=== PATIENT | male | born 1955 | race Hispanic/Latino ===

== ENCOUNTER 2016-10-28 20:53 | Emergency (ER) | payer SELFPAY ==
[2016-10-28] MEDS ORDERED: TYLENOL ONE (21:53)
[2016-10-28] MEDS ORDERED: TYLENOL PO ONE (21:59)
--- NOTE | 2016-10-29 03:29 | Emergency Department Report ---
ED Recheck HPI - General Chief Complaint: Recheck/Abnormal Lab/Rx Stated Complaint: HIP INJURY/NECK PAIN/FALL Time Seen by Provider: 10/29/16 02:49 Source: patient, family Mode of arrival: Ambulatory Limitations: No Limitations - History of Present Illness Initial Comments: Patient here requesting a refill on medication he said he ran out of his medication and he used to go to [place] and [place] to refill it but he didn't have any transportation to get there. The resident's discharge and he sustained in a care home for now. He is waiting for his disability. Patient said he has [place] Medicaid card and he can come to the ER and get his prescription was not having any cold Plake. Patient requesting refill on tramadol, ibuprofen, Flonase cromolyn sodium, Zyrtec, Lexapro, Flexeril, gabapentin and albuterol. He said several other medication but he said he does not need anything right now. Patient has said he has chronic hip pain and he is having pain to his hip and 9 out of 10. And requested some pain medication. Patient has multiple medical problems include HIV and he said the last time he saw his HIV doctor in [place] was a year ago. He said he went to [place] and had lab work drawn his viral load was undetectable and his T-cell was at 249. He is on HIV medication and he is asymptomatic for any respiratory problems or signs of infection. Patient has proof of all his medication and antibiotics. He said he is supposed to be set up with a clinic who will have social service and help him to infectious disease clinic. Patient said he's been treating for latent TB any gross to [facility] to get treated. Complaint: medication refill request Returns Today for: request for prescription Context: ran out of medication Associated Symptoms: none Treatments Prior to Arrival: Given Pain Meds on - Related Data Home Medications Medication Instructions Recorded Confirmed Last Taken Atorvastatin [Lipitor] 40 mg PO QHS 10/09/14 07/04/16 01/26/16 Lindane 1% [Kwell 1%] 60 ml TP TID 07/04/16 07/04/16 Unknown Previous Rx's Medication Instructions Recorded Last Taken Type Cetirizine HCl [All Day Allergy] 10 mg PO Q4H PRN #60 capsule 02/18/16 Unknown Rx Darunavir [Prezista] 400 mg PO QDAY #30 tablet 02/18/16 Unknown Rx Emtricitabin/Tenofovir [TRUVADA 1 tab PO DAILY #30 tablet 02/18/16 Unknown Rx 200-300 mg] Ritonavir [Norvir] 100 mg PO QDAY #30 tab 02/18/16 Unknown Rx lamoTRIgine [LaMICtal] 150 mg PO BID #60 tablet 07/04/16 Unknown Rx levETIRAcetam [Keppra TAB] 1,000 mg PO BID #60 tab 07/04/16 Unknown Rx Gabapentin [Neurontin] 100 mg PO Q8HR #30 capsule 10/13/16 Unknown Rx Levofloxacin [Levaquin TAB] 500 mg PO QDAY #7 tablet 10/13/16 Unknown Rx Prednisone [predniSONE 5 mg (6-Day 5 mg PO .TAPER #1 tab.ds.pk 10/13/16 Unknown Rx Pack, 21 Tabs)] Ritonavir [Norvir] 100 mg PO QDAY #30 cap 10/13/16 Unknown Rx traMADol [Ultram] 50 mg PO Q6HR PRN #14 tablet 10/13/16 Unknown Rx ALBUTEROL Inhaler [ProAir HFA 2 puff IH QID PRN #1 inhalation 10/29/16 Unknown Rx Inhaler] Cetirizine HCl 10 mg PO DAILY #30 tab.chew 10/29/16 Unknown Rx Cromolyn Sodium [Cromolyn Sodium 1 - 2 drop OU Q6HR #10 ml 10/29/16 Unknown Rx 4%] Cyclobenzaprine [Flexeril 10 MG 10 mg PO TID PRN #30 tablet 10/29/16 Unknown Rx TAB] Fluticasone [Flonase] 1 spray NS QDAY #1 bottle 10/29/16 Unknown Rx Gabapentin [Neurontin] 100 mg PO Q8HR #30 capsule 10/29/16 Unknown Rx traMADol [Ultram 50 MG tab] 50 mg PO TID PRN #30 tablet 10/29/16 Unknown Rx Allergies Allergy/AdvReac Type Severity Reaction Status Date / Time No Known Allergies Allergy Verified 10/28/16 21:51 ED Review of Systems ROS: Stated complaint: HIP INJURY/NECK PAIN/FALL Other details as noted in HPI Comment: All other systems reviewed and negative Constitutional: denies: chills, fever ENT: denies: throat pain, dental pain, congestion Respiratory: no symptoms reported Cardiovascular: denies: chest pain, palpitations, edema, syncope Gastrointestinal: denies: abdominal pain, nausea, vomiting, diarrhea Musculoskeletal: arthralgia (BOTH hips). denies: back pain, joint swelling Skin: denies: rash Neurological: denies: headache, weakness, numbness, paresthesias, confusion, abnormal gait, vertigo ED Past Medical Hx - Past Medical History Previous Medical History?: Yes Hx CVA: Yes (TIA 2003) Hx GERD: Yes Hx Seizures: Yes Hx Psychiatric Treatment: Yes (bipolar) Hx Asthma: Yes Hx HIV: Yes Additional medical history: right hip fx, left hip fx. herniated and ruptured discs - Surgical History Past Surgical History?: Yes Additional Surgical History: Left hip surgery - Family History Family history: hypertension - Social History Smoking Status: Current Every Day Smoker Substance Use Type: Alcohol, Marijuana - Medications Home Medications: Home Medications Medication Instructions Recorded Confirmed Last Taken Type Atorvastatin [Lipitor] 40 mg PO QHS 10/09/14 07/04/16 01/26/16 History Cetirizine HCl [All Day Allergy] 10 mg PO Q4H PRN #60 capsule 02/18/16 07/04/16 Unknown Rx Darunavir [Prezista] 400 mg PO QDAY #30 tablet 02/18/16 07/04/16 Unknown Rx Emtricitabin/Tenofovir [TRUVADA 1 tab PO DAILY #30 tablet 02/18/16 07/04/16 Unknown Rx 200-300 mg] Ritonavir [Norvir] 100 mg PO QDAY #30 tab 02/18/16 07/04/16 Unknown Rx Lindane 1% [Kwell 1%] 60 ml TP TID 07/04/16 07/04/16 Unknown History lamoTRIgine [LaMICtal] 150 mg PO BID #60 tablet 07/04/16 Unknown Rx levETIRAcetam [Keppra TAB] 1,000 mg PO BID #60 tab 07/04/16 Unknown Rx Gabapentin [Neurontin] 100 mg PO Q8HR #30 capsule 10/13/16 Unknown Rx Levofloxacin [Levaquin TAB] 500 mg PO QDAY #7 tablet 10/13/16 Unknown Rx Prednisone [predniSONE 5 mg (6-Day 5 mg PO .TAPER #1 tab.ds.pk 10/13/16 Unknown Rx Pack, 21 Tabs)] Ritonavir [Norvir] 100 mg PO QDAY #30 cap 10/13/16 Unknown Rx traMADol [Ultram] 50 mg PO Q6HR PRN #14 tablet 10/13/16 Unknown Rx ALBUTEROL Inhaler [ProAir HFA 2 puff IH QID PRN #1 inhalation 10/29/16 Unknown Rx Inhaler] Cetirizine HCl 10 mg PO DAILY #30 tab.chew 10/29/16 Unknown Rx Cromolyn Sodium [Cromolyn Sodium 1 - 2 drop OU Q6HR #10 ml 10/29/16 Unknown Rx 4%] Cyclobenzaprine [Flexeril 10 MG 10 mg PO TID PRN #30 tablet 10/29/16 Unknown Rx TAB] Fluticasone [Flonase] 1 spray NS QDAY #1 bottle 10/29/16 Unknown Rx Gabapentin [Neurontin] 100 mg PO Q8HR #30 capsule 10/29/16 Unknown Rx traMADol [Ultram 50 MG tab] 50 mg PO TID PRN #30 tablet 10/29/16 Unknown Rx ED Physical Exam - General Limitations: No Limitations General appearance: alert, in no apparent distress - Head Head exam: Present: atraumatic, normocephalic, normal inspection - ENT ENT exam: Present: normal exam, normal orophraynx, mucous membranes moist, TM's normal bilaterally, normal external ear exam - Neck Neck exam: Present: normal inspection, full ROM. Absent: tenderness, meningismus, lymphadenopathy - Respiratory Respiratory exam: Present: normal lung sounds bilaterally. Absent: respiratory distress - Cardiovascular Cardiovascular Exam: Present: regular rate, normal rhythm, normal heart sounds - GI/Abdominal GI/Abdominal exam: Present: soft, normal bowel sounds. Absent: distended, tenderness, guarding, rebound, rigid - Extremities Exam Extremities exam: Present: normal capillary refill. Absent: full ROM ( decreased range of motion to the bilateral lower extremity at hips and patient uses a walker due to chronic pain.), tenderness, pedal edema, joint swelling - Neurological Exam Neurological exam: Present: alert, oriented X3, abnormal gait (chronic hip pain and uses a walker) - Psychiatric Psychiatric exam: Present: normal affect, normal mood - Skin Skin exam: Present: warm, dry, intact, normal color. Absent: rash ED Course Vital Signs 10/28/16 10/29/16 21:51 04:10 Temperature 99 F Pulse Rate 88 Respiratory 18 20 Rate Blood Pressure 154/99 O2 Sat by Pulse 99 Oximetry - Reevaluation(s) Reevaluation #1: 10/29/16 06:25 Patient given Tylenol 975 mg in triage area for pain. He further requested Motrin and was given Motrin 800 mg by mouth in ED room. She is resting quietly at present. ED Recheck MDM - Differential Diagnosis Prescription Refill(s) - Medical Decision Making ED course: Discussed the patient that I will refill his medication but he will need to establish himself with a clinic to manage his chronic medical problem. Patient is already going to [facility] for latent TB treatment and I told them that they manage HIV at that site also. Patient is also establish to [place] clinic site explained to him that he needs to have them refer him to [place] [facility]. He said that geriatric social worker is helping him to get help through [facility] for [place]. He is currently taking HIV medication and has sufficient amount and I told him that he needs to be careful that he doesn't run out because he runs out and Misses 3 days then that can cause with assistance. Patient voiced understanding of discharge instruction and discharged home with prescription for Flonase, cromolyn 4%, ibuprofen, tramadol , gabapentin, Flexeril and Zyrtec. Critical care attestation.: If time is entered above; I have spent that time in minutes in the direct care of this critically ill patient, excluding procedure time. ED Disposition Clinical Impression: Medication refill Arthralgia of hip Qualifiers: Laterality: bilateral Qualified Code(s): M25.551 - Pain in right hip; M25.552 - Pain in left hip Disposition: DISCHARGED TO HOME OR SELFCARE Is pt being admited?: No Does the pt Need Aspirin: No Condition: Stable Instructions: Arthralgia (ED), Chronic Pain (ED) Additional Instructions: Please follow up at [place] clinic for referral to [place] [facility]. Please follow up at medical clinic for management of chronic diseases. Take medication as prescribed [facility] manage his HIV status mucosa ETB treatment you can inquire with them regarding management. Prescriptions: ALBUTEROL Inhaler [ProAir HFA Inhaler] 2 puff IH QID PRN #1 inhalation PRN Reason: Cough Cetirizine HCl 10 mg PO DAILY #30 tab.chew Cromolyn Sodium [Cromolyn Sodium 4%] 1 - 2 drop OU Q6HR #10 ml Cyclobenzaprine [Flexeril 10 MG TAB] 10 mg PO TID PRN #30 tablet PRN Reason: Muscle Spasm Fluticasone [Flonase] 1 spray NS QDAY #1 bottle Gabapentin [Neurontin] 100 mg PO Q8HR #30 capsule traMADol [Ultram 50 MG tab] 50 mg PO TID PRN #30 tablet PRN Reason: Pain Referrals: [facility] [Outside] - 2-3 Days [facility] [Outside] - 2-3 Days
[2016-10-29] MEDS ORDERED: MOTRIN PO ONE (03:50)
[2016-10-29 06:42] VITALS: BP 145/92
== END 2016-10-29 06:52 | disposition home or self-care (01) ==
LOC: ED 20:53
DX: Z76.0 Encounter for issue of repeat prescription (principal); M25.551 Pain in right hip; M25.552 Pain in left hip; K21.9 Gastro-esophageal reflux disease without esophagitis; R56.9 Unspecified convulsions; F31.9 Bipolar disorder, unspecified; J45.909 Unspecified asthma, uncomplicated; F17.200 Nicotine dependence, unspecified, uncomplicated; F12.10 Cannabis abuse, uncomplicated; Z21 Asymptomatic human immunodeficiency virus [HIV] infection status; Z86.73 Personal history of transient ischemic attack (TIA), and cerebral infarction without residual deficits
CPT/HCPCS: 99282

== ENCOUNTER 2017-02-24 22:34 | Emergency (ER) | payer SELFPAY ==
[2017-02-25] MEDS ORDERED: MORPHINE IM ONE (01:05)
[2017-02-25] MEDS ORDERED: TORADOL IM ONE (01:05)
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
--- NOTE | 2017-02-25 03:03 | XRay Report ---
FINAL REPORT PROCEDURE: XR SPINE CERVICAL 2-3V TECHNIQUE: Cervical spine radiographs, AP, lateral, and open-mouth odontoid views. CPT 10613 HISTORY: neck Pain, fall COMPARISON: No prior studies are available for comparison. FINDINGS: Prevertebral soft tissues: Normal . Alignment: Normal . Vertebral body heights/Disk spaces: The heights of the vertebral bodies are maintained. The disc spaces are maintained. There is spur formation off the vertebral bodies from the C4 through the C7 vertebral levels. Anterior osseous bridging at the C5-6 level is identified.. Fracture(s): None . Facets: Normal . Bone mineralization: Normal . IMPRESSION: No evidence of an acute fracture dislocation. Moderate arthritis as described.
--- NOTE | 2017-02-25 03:05 | XRay Report ---
FINAL REPORT PROCEDURE: XR RIBS UNI W PA CHEST 3+V LT TECHNIQUE: LEFT rib radiographs, 3 views of the ribs, including PA chest. HISTORY: left rib pain, injury COMPARISON: No prior studies are available for comparison. FINDINGS: Heart: Normal. Mediastinum/Vessels: Normal. Lungs: Normal. Pleural space: Normal. Pneumothorax: None. Bony thorax/ribs: Slightly displaced fractures of the distal left 9th 10th and 11th ribs. IMPRESSION: There are slightly displaced fractures of the distal left 9th 10th and 11th ribs. No pneumothorax.
--- NOTE | 2017-02-25 03:07 | XRay Report ---
FINAL REPORT PROCEDURE: XR SPINE LUMBOSACRAL 2-3V TECHNIQUE: Lumbar spine radiographs, including AP, lateral, and lumbosacral spot views. CPT 94437 HISTORY: back pain, fall COMPARISON: No prior studies are available for comparison. FINDINGS: Alignment: Normal. Vertebral body heights/Disk spaces: There has been old compression deformities at the L1 and L2 vertebral levels. Vertebroplasty at the L1 vertebral level is noted. No acute fracture or dislocation.. Fracture(s): No acute fracture or dislocation.. Facets: Mild facet hypertrophy at all levels.. Bone mineralization: Osteoporosis. IMPRESSION: No acute fracture or dislocation. Old compression fractures of the L1 and L2 vertebral levels. Vertebroplasty of the L1 vertebral level is noted. Moderate arthritis.
--- NOTE | 2017-02-25 03:10 | XRay Report ---
FINAL REPORT PROCEDURE: XR HIP 2-3V LT TECHNIQUE: LEFT hip radiographs, 2 views each, including AP view of the pelvis. HISTORY: hip pain, fall COMPARISON: No prior studies are available for comparison. FINDINGS: Fracture (s) and/or Dislocation(s): There is significant osseous remodeling of proximal right femur, this is consistent with old fracture involving the subcapital region of the right femoral neck. There is a left hip prosthesis, this is well positioned within the acetabulum and proximal femur. No acute fracture or dislocation is seen. Joint space(s): Advanced narrowing of the right hip joint space Soft tissues: Normal. Bone mineralization: Normal. Foreign bodies: Left hip prosthesis. IMPRESSION: No acute fracture or dislocation. There is osseous remodeling of the right proximal femur consistent with old fracture of the subcapital region of the right femoral neck. Left hip prosthesis is well positioned.
[2017-02-25 04:32] VITALS: BP 153/95
== END 2017-02-25 04:32 | disposition home or self-care (01) ==
LOC: ED 22:34
DX: S22.32XA Fracture of one rib, left side, initial encounter for closed fracture (principal); M16.12 Unilateral primary osteoarthritis, left hip; S00.83XA Contusion of other part of head, initial encounter; M54.5 Low back pain; K21.9 Gastro-esophageal reflux disease without esophagitis; J45.909 Unspecified asthma, uncomplicated; Z86.73 Personal history of transient ischemic attack (TIA), and cerebral infarction without residual deficits; W18.2XXA Fall in (into) shower or empty bathtub, initial encounter; Y93.89 Activity, other specified; Y92.89 Other specified places as the place of occurrence of the external cause; Y99.8 Other external cause status
CPT/HCPCS: 71101; 72040; 72100; 73502; 96372; 99283; J1885; J2270

== ENCOUNTER 2017-03-07 01:14 | Emergency (ER) | payer SELFPAY ==
[2017-03-07 06:25] LABS: Hematocrit 32.4 % (35.5-45.6); Hemoglobin 10.8 gm/dl (11.8-15.2); Mean Corpuscular HGB Conc 33 % (32-34); Mean Corpuscular Hemoglobin 31 pg (28-32); Mean Corpuscular Volume 93 fl (84-94); Platelet Count 323 K/mm3 (140-440); Red Blood Count 3.47 M/mm3 (3.65-5.03); Red Cell Distribution Width 15.4 % (13.2-15.2); White Blood Count 8.7 K/mm3 (4.5-11.0)
[2017-03-07] MEDS ORDERED: PERCOCET 5/325 PO ONE (06:43)
[2017-03-07] MEDS ORDERED: TORADOL IM ONE (06:43)
[2017-03-07 06:52] LABS: Anion Gap 15 mmol/L; Blood Urea Nitrogen 26 mg/dL (9-20); Calcium 8.4 mg/dL (8.4-10.2); Carbon Dioxide 28 mmol/L (22-30); Chloride 104.2 mmol/L (98-107); Creatine Kinase 24 units/L (55-170); Glucose 110 mg/dL (75-100); Potassium 3.7 mmol/L (3.6-5.0); Sodium 143 mmol/L (137-145)
[2017-03-07 06:54] LABS: Creatine Kinase MB < 1.0 ng/mL (0.0-4.0)
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
--- NOTE | 2017-03-07 09:13 | Cat Scan Report ---
CT CHEST WITHOUT CONTRAST: HISTORY: Chest pain, left lower rib pain. TECHNIQUE: Helical CT with sagittal and coronal reformatted images. FINDINGS: Nondisplaced left lateral rib fractures are identified the eighth and ninth levels. A healing left lateral rib fracture at the fifth level is also identified which appears subacute. Moderate thoracic spondylosis. Kyphoplasty changes in the lower thoracic spine are noted. Heart and mediastinal structures are within normal limits. No mediastinal mass or adenopathy. The lungs are clear. No evidence for pneumonia, pleural effusion or pneumothorax. Limited images of the upper abdomen demonstrates nonobstructing renal stones in the superior kidneys. IMPRESSION: Left lateral eighth and ninth rib fractures, relatively acute. Healing left lateral fifth rib fracture, subacute. No acute cardiopulmonary process identified.
[2017-03-07 10:53] VITALS: BP 140/72
== END 2017-03-07 10:54 | disposition home or self-care (01) ==
LOC: ED 01:14
DX: S22.42XA Multiple fractures of ribs, left side, initial encounter for closed fracture (principal); K21.9 Gastro-esophageal reflux disease without esophagitis; J45.909 Unspecified asthma, uncomplicated; F12.10 Cannabis abuse, uncomplicated; Z86.73 Personal history of transient ischemic attack (TIA), and cerebral infarction without residual deficits; W19.XXXA Unspecified fall, initial encounter; Y93.89 Activity, other specified; Y92.89 Other specified places as the place of occurrence of the external cause; Y99.8 Other external cause status
CPT/HCPCS: 36415; 71250; 80048; 82550; 82553; 84484; 85025; 93005; 93010; 96372; 99284; J1885

== ENCOUNTER 2017-03-13 23:57 | Emergency (ER) | payer SELFPAY ==
--- NOTE | 2017-03-14 02:33 | XRay Report ---
FINAL REPORT EXAM: XR RIBS UNILAT 2V LT HISTORY: LEFT RIB PAIN. TECHNIQUE: A single frontal radiograph of the chest and 3 additional views of the left-sided ribs were obtained. Comparison is made with prior study 02/24/2017. FINDINGS: The heart is normal in size. The thoracic aorta tortuous and mildly calcified. There are low lung volumes. There is mild linear scarring at the left lateral lung base, also seen on prior study. The right lung is clear. There is no pleural effusion or pneumothorax. There is a subacute fracture of the left posterolateral 5th rib, with associated callus formation, though this was not seen on prior study. There is a mildly displaced fracture of the posterior left 6th rib, also seen on prior study. There are also fractures of the anterior left 8th, 9th, 10th, and 11th ribs, also seen on prior study. There are multiple compression deformities in the lower thoracic/upper lumbar spine, status post cement vertebroplasties. There are moderate spondylotic changes in the spine. IMPRESSION: 1. Low lung volumes with stable mild linear scarring at the left lateral lung base. 2. Multiple left-sided rib fractures, as described. This includes subacute fracture of the left posterolateral 5th rib, which was not seen on prior study 02/24/2017, with associated callus formation. No pleural effusion or pneumothorax.
[2017-03-14] MEDS ORDERED: TORADOL IM ONE (08:25)
[2017-03-14] MEDS ORDERED: FLEXERIL PO ONE (08:25)
[2017-03-14] MEDS ORDERED: NORCO 7.5/325 PO ONE (08:25)
[2017-03-14 09:37] VITALS: BP 147/75
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
== END 2017-03-14 10:20 | disposition home or self-care (01) ==
LOC: ED 23:57
DX: S22.42XD Multiple fractures of ribs, left side, subsequent encounter for fracture with routine healing (principal); K21.9 Gastro-esophageal reflux disease without esophagitis; J45.909 Unspecified asthma, uncomplicated; F12.10 Cannabis abuse, uncomplicated; Y08.89XA Assault by other specified means, initial encounter; Y93.9 Activity, unspecified; Y92.9 Unspecified place or not applicable; Y99.9 Unspecified external cause status
CPT/HCPCS: 71100; 96372; 99283; J1885

== ENCOUNTER 2017-03-24 03:33 | Emergency (ER) | payer MEDICAID, OTHER ==
--- NOTE | 2017-03-24 06:48 | XRay Report ---
FINAL REPORT PROCEDURE: XR HIPS BILAT 2V W/PELVIS TECHNIQUE: RIGHT and LEFT hip radiographs, AP and lateral views of each hip. HISTORY: fall COMPARISON: No prior studies are available for comparison. FINDINGS: Fracture (s) and/or Dislocation(s): There is an impacted subcapital right femoral neck fracture. There is been previous left hip arthroplasty. The hardware is properly positioned. Joint space(s): Significant narrowing of the right hip joint space is noted. Soft tissues: Normal. Bone mineralization: Normal. Foreign bodies: Left hip prosthesis, hardware is properly positioned. IMPRESSION: Impacted subcapital right femoral neck fracture. Moderate right hip arthritis. Previous left hip arthroplasty, the hardware is properly positioned.
--- NOTE | 2017-03-24 08:45 | Emergency Department Report ---
HPI - General Chief Complaint: Fall Time Seen by Provider: 03/24/17 08:10 - HPI HPI: This is a 61-year-old male who presents to the emergency department after falling onto his walker yesterday hitting the left lower portion of his chest and rib cage. The patient has a history of left hip replacement and bilateral hip pain and says that his left side is always weak and he slipped and hit the handle of the walker. He denies any his head or any loss of consciousness. He has a past medical history of asthma, TIA, GERD, HIV, seizures. He does not currently have a primary care physician. The patient was here twice recently for previous fall and chronic pains. He was found to have fractures of the left lower ribs 8 through 11, close to where he is currently having pain. At that time he was sent to follow-up with the orthopedist, Dr. Otoole, but he never did so. He has not taken anything for his symptoms prior to presentation. ED Past Medical Hx - Past Medical History Previous Medical History?: Yes Hx CVA: Yes (TIA 2003) Hx GERD: Yes Hx Seizures: Yes Hx Psychiatric Treatment: Yes (bipolar) Hx Asthma: Yes Hx HIV: Yes Additional medical history: right hip fx, left hip fx. herniated and ruptured discs - Surgical History Past Surgical History?: Yes Additional Surgical History: Left hip surgery - Social History Smoking Status: Never Smoker Substance Use Type: None - Medications Home Medications: Home Medications Medication Instructions Recorded Confirmed Last Taken Type Atorvastatin [Lipitor] 40 mg PO QHS 10/09/14 02/24/17 02/24/17 History Cetirizine HCl [All Day Allergy] 10 mg PO Q4H PRN #60 capsule 02/18/16 02/24/17 02/24/17 Rx Darunavir [Prezista] 400 mg PO QDAY #30 tablet 02/18/16 02/24/17 02/24/17 Rx Emtricitabin/Tenofovir [TRUVADA 1 tab PO DAILY #30 tablet 02/18/16 02/24/17 Rx 200-300 mg] [place] 1% [[place]well 1%] 60 ml TP TID 07/04/16 02/24/17 Unknown History lamoTRIgine [LaMICtal] 150 mg PO BID #60 tablet 07/04/16 02/24/1717 Rx levETIRAcetam [Keppra TAB] 1,000 mg PO BID #60 tab 07/04/16 02/24/17 02/24/17 Rx Ritonavir [Norvir] 100 mg PO QDAY #30 cap 10/13/16 02/24/17 02/24/17 Rx ALBUTEROL Inhaler [ProAir HFA 2 puff IH QID PRN #1 inhalation 10/29/16 02/24/17 Unknown Rx Inhaler] Cromolyn Sodium [Cromolyn Sodium 1 - 2 drop OU Q6HR #10 ml 10/29/16 02/24/17 Rx 4%] Cyclobenzaprine [Flexeril 10 MG 10 mg PO TID PRN #30 tablet 10/29/16 02/24/17 Rx TAB] Fluticasone [Flonase] 1 spray NS QDAY #1 bottle 10/29/16 02/24/17 02/24/17 Rx Acetaminophen [Tylenol] 500 mg PO Q4HR 02/24/17 02/24/17 02/24/17 History Gabapentin [Neurontin] 300 mg PO Q8HR 02/24/17 02/24/17 02/24/17 History Ibuprofen [Motrin] 800 mg PO Q6HR 02/24/17 02/24/17 02/24/17 History traMADol [Ultram 50 MG tab] 100 mg PO TID PRN 02/24/17 02/24/17 02/24/17 History Acetaminophen [Acetaminophen TAB] 975 mg PO Q6HR PRN #180 tablet 02/25/17 Unknown Rx Cyclobenzaprine [Flexeril] 10 mg PO TID PRN #30 tablet 02/25/17 Unknown Rx Tramadol HCl [traMADol ER 100 MG] 100 mg PO TID #45 tbmp.24hr 02/25/17 Unknown Rx predniSONE [Deltasone] 60 mg PO QDAY #15 tab 02/25/17 Unknown Rx Acetaminophen [Acetaminophen TAB] 325 mg PO Q6HR PRN #30 tablet 03/07/17 Unknown Rx Fluticasone/Salmeterol [Advair 1 puff IH BID #1 disk.w.dev 03/07/17 Unknown Rx Diskus 250-50 mcg] HYDROcodone/APAP 5-325 [[place] 1 each PO Q6HR PRN #20 tablet 03/07/17 Unknown Rx 5/325] Ibuprofen [Motrin] 800 mg PO Q8HR PRN #30 tablet 03/07/17 Unknown Rx HYDROcodone/APAP 5-325 [[place] 1 each PO Q8H PRN #9 tablet 03/14/17 Unknown Rx 5/325] methOCARBAMOL [Robaxin TAB] 500 mg PO TID #21 tab 03/14/17 Unknown Rx traMADol [Ultram] 50 mg PO Q6HR PRN #8 tablet 03/24/17 Unknown Rx ED Review of Systems ROS: Stated complaint: FALL ON LT SIDE OF BODY Other details as noted in HPI Comment: All other systems reviewed and negative Constitutional: denies: chills, fever Eyes: denies: eye pain, eye discharge, vision change ENT: denies: ear pain, throat pain Respiratory: denies: cough, wheezing Cardiovascular: chest pain (left lower rib pain). denies: palpitations Gastrointestinal: denies: abdominal pain, nausea, diarrhea Genitourinary: denies: urgency, dysuria Musculoskeletal: arthralgia (chronic). denies: back pain Skin: denies: rash, lesions Neurological: denies: headache, weakness, paresthesias Physical Exam - Physical Exam Vital Signs: Vital Signs 03/24/17 03/24/17 04:46 07:59 Temperature 98.3 F 97.6 F Pulse Rate 75 69 Respiratory 18 16 Rate Blood Pressure 115/78 Blood Pressure 122/75 [Left] O2 Sat by Pulse 100 99 Oximetry Physical Exam: GENERAL: The patient is well-developed well-nourished. HENT: Normocephalic. Atraumatic. Patient has moist mucous membranes. EYES: Extraocular motions are intact. Pupils equal reactive to light bilaterally. NECK: Supple. No meningitic signs are noted. There is no adenopathy noted. CHEST/LUNGS: Clear to auscultation. There is no respiratory distress noted. There is some reproducible tenderness palpation to the left anterior inferior rib cage but no crepitus or obvious deformity. HEART/CARDIOVASCULAR: Regular. There is no tachycardia. There is no gallop rub or murmur. ABDOMEN: Abdomen is soft, nontender. Patient has normal bowel sounds. There is no abdominal distention. SKIN: Skin is warm and dry. NEURO: The patient is awake, alert, and oriented. The patient is cooperative. The patient has no focal neurologic deficits. The patient has normal speech. MUSCULOSKELETAL: There is some reproducible tenderness to palpation to the hips but there is no laxity or obvious deformity. There is no evidence of acute injury. ED Course Vital Signs 03/24/17 03/24/17 04:46 07:59 Temperature 98.3 F 97.6 F Pulse Rate 75 69 Respiratory 18 16 Rate Blood Pressure 115/78 Blood Pressure 122/75 [Left] O2 Sat by Pulse 100 99 Oximetry ED Medical Decision Making - Radiology Data Radiology results: report reviewed, image reviewed interpreted by me: X-ray of the bilateral hip does not show any acute process. There is hardware for a left hip replacement. The right hip shows osteoarthritic changes. One view chest and left rib series shows healing left rib fractures. Healing left posterior lateral rib fractures from levels 8 through 11 are unchanged and no additional fractures are detected. No pneumothorax. CT of the right lower extremity does not show any acute fracture. Probable chronic healed right femoral neck fracture with advanced degenerative changes. Flattening of the femoral head also suggest chronic avascular necrosis. - Medical Decision Making 61-year-old male with history of osteoarthritis, left hip replacement, bilateral hip fractures and a recent fall causing left sided rib fractures, presents after he falls onto his walker handle yesterday. Patient's main reason for coming in was pain to the left rib cage. X-ray of the chest and left rib series was read by radiology as healing left posterior lateral rib fractures but no additional rib fracture seen. Patient has chronic hip pain and for some reason an x-ray was done of the bilateral hips. To me it looked mostly like osteoarthritic changes and degenerative joint disease but was read by radiologist as a subcapital right femoral fracture. For this reason I did a CT of the right lower extremity without contrast that was then read by radiology as no acute fracture. The patient was able to display the ability to get up and move about the room while using his walker. He was given some pain control. He was once again given a referral for an orthopedist. He was encouraged to return to the emergency Department with any worsening of symptoms or any acute distress. - Differential Diagnosis fracture, contusion, pneumothorax, osteoarthritis Critical Care Time: No Critical care attestation.: If time is entered above; I have spent that time in minutes in the direct care of this critically ill patient, excluding procedure time. ED Disposition Clinical Impression: History of rib fracture, Rib pain on left side Hip pain, chronic Qualifiers: Laterality: unspecified laterality Qualified Code(s): M25.559 - Pain in unspecified hip Fall Qualifiers: Encounter type: initial encounter Qualified Code(s): W19.XXXA - Unspecified fall, initial encounter Disposition: TO HOME OR SELFCARE Is pt being admited?: No Condition: Stable Instructions: Rib Fracture (ED), Chronic Pain (ED), Fall Prevention (ED) Additional Instructions: His follow-up with a primary care physician in the next few days. I have given you a referral for a local orthopedist, Dr. Otoole, to follow up regarding your healing rib fractures and your chronic hip pain. Return to the emergency Department with any worsening of your symptoms or any acute distress. You have been prescribed a medication that is sedating and therefore should not be taken prior to driving, working, and responsible for children and in no way should be mixed with alcohol of any quantity. Prescriptions: traMADol [Ultram] 50 mg PO Q6HR PRN #8 tablet PRN Reason: Pain Referrals: PRIMARY CAREMD [Primary Care Provider] - 3-5 Days NATALIA OTOOLE MD [Staff Physician] - 3-5 Days [facility] [Outside] - 3-5 Days Time of Disposition: 11:25
--- NOTE | 2017-03-24 09:30 | Cat Scan Report ---
CT LOWER EXTREMITY RIGHT WITHOUT CONTRAST History: Right hip fracture, right hip pain. Technique: Helical CT with sagittal and coronal reformatted images. Findings: The bilateral hip x-ray performed earlier today was reviewed. CT demonstrates no evidence for acute fracture. There does appear to be a chronic healed right femoral neck fracture. Advanced osteoarthritic changes are also identified at the right hip joint. There is flattening of the superior right femoral head which may be related to osteonecrosis. The visualized right hemipelvis is intact. The soft tissues are unremarkable. Impression: No acute fracture is detected on CT. Probable chronic, healed right femoral neck fracture with advanced degenerative changes. Flattening of the femoral head also suggests chronic avascular necrosis.
--- NOTE | 2017-03-24 10:03 | XRay Report ---
LEFT RIBS, 3 VIEWS: History: pain. Healing left posterolateral rib fractures from levels 8-11 are unchanged in position and alignment since 03/14/17. No additional rib fractures are detected. The left lung is well-aerated. Kyphoplasty changes at T10, T11 and L1 are noted. The bony structures are demineralized. IMPRESSION: Healing left rib fractures as described.
[2017-03-24] MEDS ORDERED: ULTRAM PO ONE (10:28)
[2017-03-24] MEDS ORDERED: TORADOL IM ONE (10:28)
[2017-03-24 11:28] VITALS: BP 131/67
== END 2017-03-24 11:46 | disposition home or self-care (01) ==
LOC: ED 03:33
DX: M25.551 Pain in right hip (principal); M25.552 Pain in left hip; W18.30XA Fall on same level, unspecified, initial encounter; Y93.9 Activity, unspecified; Y92.9 Unspecified place or not applicable; Y99.9 Unspecified external cause status
CPT/HCPCS: 71101; 73521; 73700; 96372; 99284; J1885

== ENCOUNTER 2017-03-25 23:52 | Emergency (ER) | payer MEDICAID, OTHER ==
[2017-03-26] MEDS ORDERED: LaMICtal PO ONE (00:21)
[2017-03-26] MEDS ORDERED: KEPPRA PO ONE (00:22)
[2017-03-26] MEDS ORDERED: TYLENOL ONE (00:25)
[2017-03-26] MEDS ORDERED: TYLENOL PO ONE (00:28)
[2017-03-26 01:02] LABS: Basophils % (Auto) 0.2 % (0.0-1.8); Eosinophils % (Auto) 1.4 % (0.0-4.3); Hematocrit 36.2 % (35.5-45.6); Hemoglobin 12.1 gm/dl (11.8-15.2); Mean Corpuscular HGB Conc 33 % (32-34); Mean Corpuscular Hemoglobin 31 pg (28-32); Mean Corpuscular Volume 94 fl (84-94); Platelet Count 250 K/mm3 (140-440); Red Blood Count 3.85 M/mm3 (3.65-5.03); Red Cell Distribution Width 15.9 % (13.2-15.2); White Blood Count 6.3 K/mm3 (4.5-11.0)
--- NOTE | 2017-03-26 01:02 | XRay Report ---
FINAL REPORT PROCEDURE: XR RIBS UNILAT 2V LT TECHNIQUE: Unilateral rib radiographs, 2 views of the LEFT ribs. HISTORY: fall, left rib pain COMPARISON: 03/13/2017 FINDINGS: Lungs: Normal. Pleural space: There is suboptimal inspiration with atelectasis at the lung bases. There is no infiltrate or contusion. Pneumothorax: There is no pneumothorax or pleural effusion. Bony thorax/ribs: Previously noted left-sided rib fractures are again seen. These demonstrate interval healing. No definite new fracture is seen. There is bone cement in the thoracic and lumbar spine from prior cement augmentation of fractures. IMPRESSION: Healing left rib fractures. No acute lung disease is identified.
[2017-03-26 01:20] LABS: Anion Gap 18 mmol/L; BUN/Creatinine Ratio 27.14; Blood Urea Nitrogen 19 mg/dL (9-20); Calcium 9.1 mg/dL (8.4-10.2); Carbon Dioxide 25 mmol/L (22-30); Chloride 106.4 mmol/L (98-107); Glucose 102 mg/dL (75-100); Potassium 4.3 mmol/L (3.6-5.0); Sodium 145 mmol/L (137-145)
--- NOTE | 2017-03-26 07:19 | Emergency Department Report ---
HPI - General Chief Complaint: Fall Time Seen by Provider: 03/26/17 06:47 - HPI HPI: This is a 61-year-old male presents to the emergency department with complaint of a fall onto the handle of his walker that occurred yesterday. The patient has a history of bilateral hip fractures and left hip replacement and says that his left side is always weak. He was seen here for similar symptoms and situation a few different times over the past few weeks. He denies hitting his head or any loss of consciousness. Patient is also asking for medication refill of his Keppra 1000 mg and Lamictal 150 mg as he says that he left his seizure prescriptions in a friend's car. The patient has a past medical history of asthma, TIA, GERD, HIV, bipolar disorder, along with these previously mentioned orthopedic issues. The patient also says that he is currently homeless and has nowhere to go. ED Past Medical Hx - Past Medical History Previous Medical History?: Yes Hx CVA: Yes (TIA 2003) Hx GERD: Yes Hx Seizures: Yes Hx Psychiatric Treatment: Yes (bipolar) Hx Asthma: Yes Hx HIV: Yes Additional medical history: right hip fx, left hip fx. herniated and ruptured discs - Surgical History Past Surgical History?: Yes Additional Surgical History: Left hip surgery - Social History Smoking Status: Never Smoker Substance Use Type: None - Medications Home Medications: Home Medications Medication Instructions Recorded Confirmed Last Taken Type Atorvastatin [Lipitor] 40 mg PO QHS 10/09/14 02/24/17 02/24/17 History Cetirizine HCl [All Day Allergy] 10 mg PO Q4H PRN #60 capsule 02/18/16 02/24/17 02/24/17 Rx Darunavir [Prezista] 400 mg PO QDAY #30 tablet 02/18/16 02/24/17 02/24/17 Rx Emtricitabin/Tenofovir [TRUVADA 1 tab PO DAILY #30 tablet 02/18/16 02/24/17 Rx 200-300 mg] [place] 1% [[place] 1%] 60 ml TP TID 07/04/16 02/24/17 Unknown History Ritonavir [Norvir] 100 mg PO QDAY #30 cap 10/13/16 02/24/17 02/24/17 Rx ALBUTEROL Inhaler [ProAir HFA 2 puff IH QID PRN #1 inhalation 10/29/16 02/24/17 Unknown Rx Inhaler] Cromolyn Sodium [Cromolyn Sodium 1 - 2 drop OU Q6HR #10 ml 10/29/16 02/24/17 Rx 4%] Cyclobenzaprine [Flexeril 10 MG 10 mg PO TID PRN #30 tablet 10/29/16 02/24/17 Rx TAB] Fluticasone [Flonase] 1 spray NS QDAY #1 bottle 10/29/16 02/24/17 02/24/17 Rx Acetaminophen [Tylenol] 500 mg PO Q4HR 02/24/17 02/24/17 02/24/17 History Gabapentin [Neurontin] 300 mg PO Q8HR 02/24/17 02/24/17 02/24/17 History Ibuprofen [Motrin] 800 mg PO Q6HR 02/24/17 02/24/17 02/24/17 History traMADol [Ultram 50 MG tab] 100 mg PO TID PRN 02/24/17 02/24/17 02/24/17 History Acetaminophen [Acetaminophen TAB] 975 mg PO Q6HR PRN #180 tablet 02/25/17 Unknown Rx Cyclobenzaprine [Flexeril] 10 mg PO TID PRN #30 tablet 02/25/17 Unknown Rx Tramadol HCl [traMADol ER 100 MG] 100 mg PO TID #45 tbmp.24hr 02/25/17 Unknown Rx predniSONE [Deltasone] 60 mg PO QDAY #15 tab 02/25/17 Unknown Rx Acetaminophen [Acetaminophen TAB] 325 mg PO Q6HR PRN #30 tablet 03/07/17 Unknown Rx Fluticasone/Salmeterol [Advair 1 puff IH BID #1 disk.w.dev 03/07/17 Unknown Rx Diskus 250-50 mcg] HYDROcodone/APAP 5-325 [[place] 1 each PO Q6HR PRN #20 tablet 03/07/17 Unknown Rx 5/325] Ibuprofen [Motrin] 800 mg PO Q8HR PRN #30 tablet 03/07/17 Unknown Rx HYDROcodone/APAP 5-325 [[place] 1 each PO Q8H PRN #9 tablet 03/14/17 Unknown Rx 5/325] methOCARBAMOL [Robaxin TAB] 500 mg PO TID #21 tab 03/14/17 Unknown Rx traMADol [Ultram] 50 mg PO Q6HR PRN #8 tablet 03/24/17 Unknown Rx lamoTRIgine [LaMICtal] 150 mg PO BID #60 tablet 03/26/17 Unknown Rx levETIRAcetam [Keppra TAB] 1,000 mg PO BID #60 tab 03/26/17 Unknown Rx ED Review of Systems ROS: Stated complaint: SEIZURE Other details as noted in HPI Comment: All other systems reviewed and negative Constitutional: denies: chills, fever Eyes: denies: eye pain, eye discharge, vision change ENT: denies: ear pain, throat pain Respiratory: denies: cough, shortness of breath, wheezing Cardiovascular: denies: palpitations, edema Gastrointestinal: denies: abdominal pain, nausea, diarrhea Genitourinary: denies: urgency, dysuria Musculoskeletal: other (chronic left rib pain from healing rib fractures). denies: back pain Skin: denies: rash, lesions Neurological: denies: headache, weakness, paresthesias Physical Exam - Physical Exam Vital Signs: Vital Signs 03/26/17 03/26/17 00:09 06:16 Temperature 98.2 F Pulse Rate 80 64 Respiratory 18 18 Rate Blood Pressure 145/83 112/59 [Right] O2 Sat by Pulse 97 99 Oximetry Physical Exam: GENERAL: The patient is well-developed well-nourished. HENT: Normocephalic. Atraumatic. Patient has moist mucous membranes. EYES: Extraocular motions are intact. Pupils equal reactive to light bilaterally. NECK: Supple. Trachea is midline. CHEST/LUNGS: Clear to auscultation. There is no respiratory distress noted. There is some mild tenderness to palpation to the left lower rib cage with the patient has previous healing rib fractures. No crepitus or deformity. HEART/CARDIOVASCULAR: Regular. There is no tachycardia. There is no gallop rub or murmur. ABDOMEN: Abdomen is soft, nontender. Patient has normal bowel sounds. There is no abdominal distention. SKIN: There is no rash. There is no edema. There is no diaphoresis. NEURO: The patient is awake, alert, and oriented. The patient is cooperative. The patient has no focal neurologic deficits. The patient has normal speech. MUSCULOSKELETAL: There is no tenderness or deformity. There is no limitation range of motion. There is no evidence of acute injury. ED Course Vital Signs 03/26/17 03/26/17 00:09 06:16 Temperature 98.2 F Pulse Rate 80 64 Respiratory 18 18 Rate Blood Pressure 145/83 112/59 [Right] O2 Sat by Pulse 97 99 Oximetry ED Medical Decision Making - Lab Data Result diagrams: 03/26/17 00:48 03/26/17 00:48 - Radiology Data Radiology results: report reviewed Chest/rib x-ray shows healing left rib fractures otherwise no acute lung process. - Medical Decision Making 61-year-old male presents to the emergency department after a fall onto the handle of his walker which is very similar to his last visit here. X-ray does not show any new fractures or any acute process. The rest the patient's labs are mostly unremarkable. The patient also says that he is missing his seizure medication since he left the prescription in his friend's car. Patient says that he is homeless and has nowhere to go. As the patient does not appear to have any new injuries or any significant trauma, he does not appear to require admission or transfer. I had psychiatric social worker come and see the patient and he was offered multiple different options for local shelters but the patient has refused so he will be discharged to his own accord. - Differential Diagnosis rib fracture, pneumothorax, contusion Critical Care Time: No Critical care attestation.: If time is entered above; I have spent that time in minutes in the direct care of this critically ill patient, excluding procedure time. ED Disposition Clinical Impression: Medication refill, History of rib fracture Fall Qualifiers: Encounter type: initial encounter Qualified Code(s): W19.XXXA - Unspecified fall, initial encounter Hip pain, chronic Qualifiers: Laterality: unspecified laterality Qualified Code(s): M25.559 - Pain in unspecified hip Disposition: DC-01 TO HOME OR SELFCARE Is pt being admited?: No Condition: Stable Instructions: Chronic Pain (ED), Fall Prevention (ED) Additional Instructions: Please follow up with a primary care physician as soon as possible. Return to the emergency Department with any worsening of her symptoms or any acute distress. Prescriptions: lamoTRIgine [LaMICtal] 150 mg PO BID #60 tablet levETIRAcetam [Keppra TAB] 1,000 mg PO BID #60 tab Referrals: [facility] [Outside] - [place]
[2017-03-26 12:59] VITALS: BP 128/70
== END 2017-03-26 12:59 | disposition home or self-care (01) ==
LOC: ED 23:52
DX: M25.552 Pain in left hip (principal); M25.551 Pain in right hip; G89.29 Other chronic pain; K21.9 Gastro-esophageal reflux disease without esophagitis; J45.909 Unspecified asthma, uncomplicated; Z86.73 Personal history of transient ischemic attack (TIA), and cerebral infarction without residual deficits
CPT/HCPCS: 36415; 71100; 80048; 85025; 99284; G0480; 80320

== ENCOUNTER 2017-04-02 11:03 | Emergency (ER) | payer MEDICAID ==
[2017-04-02] MEDS ORDERED: LaMICtal PO ONE (11:54)
[2017-04-02] MEDS ORDERED: NORCO 5/325 PO ONE (11:54)
[2017-04-02] MEDS ORDERED: KEPPRA PO ONE (12:55)
--- NOTE | 2017-04-02 13:01 | Emergency Department Report ---
HPI - General Chief Complaint: Seizure Time Seen by Provider: 04/02/17 11:31 - HPI HPI: Patient came to ED with tremors, not feeling well, history of seizures. Patient states is homeless and has been without his Keppra, Lamictal and his other medications. He said he has been shaking, and feeling unsteady in his feet, tremors involving upper extremities only. Patient also state that he falls easily due to his multiple medical condition. He fell earlier today and complains of some chest discomfort after falling. He stated he has multiple rib fractures in the past ED Past Medical Hx - Past Medical History Hx CVA: Yes (TIA 2003) Hx GERD: Yes Hx Seizures: Yes Hx Psychiatric Treatment: Yes (bipolar) Hx Asthma: Yes Hx HIV: Yes Additional medical history: right hip fx, left hip fx. herniated and ruptured discs - Surgical History Additional Surgical History: Left hip surgery - Social History Smoking Status: Never Smoker Substance Use Type: None - Medications Home Medications: Home Medications Medication Instructions Recorded Confirmed Last Taken Type Atorvastatin [Lipitor] 40 mg PO QHS 10/09/14 02/24/17 02/24/17 History Cetirizine HCl [All Day Allergy] 10 mg PO Q4H PRN #60 capsule 02/18/16 02/24/17 02/24/17 Rx Darunavir [Prezista] 400 mg PO QDAY #30 tablet 02/18/16 02/24/17 02/24/17 Rx Emtricitabin/Tenofovir [TRUVADA 1 tab PO DAILY #30 tablet 02/18/16 02/24/17 Rx 200-300 mg] [place] 1% [[place] 1%] 60 ml TP TID 07/04/16 02/24/17 Unknown History Ritonavir [Norvir] 100 mg PO QDAY #30 cap 10/13/16 02/24/17 02/24/17 Rx ALBUTEROL Inhaler [ProAir HFA 2 puff IH QID PRN #1 inhalation 10/29/16 02/24/17 Unknown Rx Inhaler] Cromolyn Sodium [Cromolyn Sodium 1 - 2 drop OU Q6HR #10 ml 10/29/16 02/24/17 Rx 4%] Cyclobenzaprine [Flexeril 10 MG 10 mg PO TID PRN #30 tablet 10/29/16 02/24/17 Rx TAB] Fluticasone [Flonase] 1 spray NS QDAY #1 bottle 10/29/16 02/24/17 02/24/17 Rx Acetaminophen [Tylenol] 500 mg PO Q4HR 02/24/17 02/24/17 02/24/17 History Gabapentin [Neurontin] 300 mg PO Q8HR 02/24/17 02/24/17 02/24/17 History Ibuprofen [Motrin] 800 mg PO Q6HR 02/24/17 02/24/17 02/24/17 History traMADol [Ultram 50 MG tab] 100 mg PO TID PRN 02/24/17 02/24/17 02/24/17 History Acetaminophen [Acetaminophen TAB] 975 mg PO Q6HR PRN #180 tablet 02/25/17 Unknown Rx Cyclobenzaprine [Flexeril] 10 mg PO TID PRN #30 tablet 02/25/17 Unknown Rx Tramadol HCl [traMADol ER 100 MG] 100 mg PO TID #45 tbmp.24hr 02/25/17 Unknown Rx predniSONE [Deltasone] 60 mg PO QDAY #15 tab 02/25/17 Unknown Rx Acetaminophen [Acetaminophen TAB] 325 mg PO Q6HR PRN #30 tablet 03/07/17 Unknown Rx Fluticasone/Salmeterol [Advair 1 puff IH BID #1 disk.w.dev 03/07/17 Unknown Rx Diskus 250-50 mcg] HYDROcodone/APAP 5-325 [[place] 1 each PO Q6HR PRN #20 tablet 03/07/17 Unknown Rx 5/325] Ibuprofen [Motrin] 800 mg PO Q8HR PRN #30 tablet 03/07/17 Unknown Rx HYDROcodone/APAP 5-325 [[place] 1 each PO Q8H PRN #9 tablet 03/14/17 Unknown Rx 5/325] methOCARBAMOL [Robaxin TAB] 500 mg PO TID #21 tab 03/14/17 Unknown Rx traMADol [Ultram] 50 mg PO Q6HR PRN #8 tablet 03/24/17 Unknown Rx lamoTRIgine [LaMICtal] 150 mg PO BID #60 tablet 03/26/17 Unknown Rx levETIRAcetam [Keppra TAB] 1,000 mg PO BID #60 tab 03/26/17 Unknown Rx ED Review of Systems ROS: Stated complaint: SEIZURE RX REFILL Other details as noted in HPI Comment: All other systems reviewed and negative Musculoskeletal: as per HPI Neurological: other (tremors) Physical Exam - Physical Exam Vital Signs: Vital Signs 04/02/17 04/02/17 04/02/17 11:20 11:34 12:31 Temperature 98.3 F 98.7 F Pulse Rate 61 Respiratory 18 16 Rate Blood Pressure 135/80 O2 Sat by Pulse 98 98 Oximetry Physical Exam: - General Limitations: No Limitations General appearance: alert, in no apparent distress - Head Head exam: Present: atraumatic, normocephalic - Eye Eye exam: Present: normal appearance - ENT ENT exam: Present: mucous membranes moist - Neck Neck exam: Present: normal inspection - Respiratory Respiratory exam: Present: normal lung sounds bilaterally, has made chest tenderness. Absent: respiratory distress - Cardiovascular Cardiovascular Exam: Present: regular rate, normal rhythm. Absent: systolic murmur, diastolic murmur, rubs, gallop - GI/Abdominal GI/Abdominal exam: Present: soft, normal bowel sounds - Extremities Exam Extremities exam: Present: normal inspection - Back Exam Back exam: Present: normal inspection - Neurological Exam Neurological exam: Present: alert, oriented X3, CN II-XII intact - Psychiatric Psychiatric exam: Present:normal affect - Skin Skin exam: Present: warm, dry, intact, normal color. Absent: rash ED Course Vital Signs 04/02/17 04/02/17 04/02/17 11:20 11:34 12:31 Temperature 98.3 F 98.7 F Pulse Rate 61 Respiratory 18 16 Rate Blood Pressure 135/80 O2 Sat by Pulse 98 98 Oximetry Critical care attestation.: If time is entered above; I have spent that time in minutes in the direct care of this critically ill patient, excluding procedure time. ED Disposition Clinical Impression: Chest wall pain Fall Qualifiers: Encounter type: initial encounter Qualified Code(s): W19.XXXA - Unspecified fall, initial encounter Disposition: DC- TO HOME OR SELFCARE Is pt being admited?: No Does the pt Need Aspirin: No Condition: Stable Instructions: Chest Pain (ED) Referrals: PRIMARY CARE,MD [Primary Care Provider] - 3-5 Days
--- NOTE | 2017-04-02 13:40 | XRay Report ---
AP CHEST: HISTORY: chest pain AP view of the chest demonstrates a normal mediastinal and cardiac contour with clear lungs and normal bony and soft tissue structures. IMPRESSION: Unremarkable AP chest.
[2017-04-02] MEDS ORDERED: CLARITIN PO ONE (14:22)
[2017-04-02 15:05] VITALS: BP 129/65
== END 2017-04-02 15:08 | disposition home or self-care (01) ==
LOC: ED 11:03
DX: R07.89 Other chest pain (principal); K21.9 Gastro-esophageal reflux disease without esophagitis; F31.9 Bipolar disorder, unspecified; J45.909 Unspecified asthma, uncomplicated; Z86.73 Personal history of transient ischemic attack (TIA), and cerebral infarction without residual deficits; R56.9 Unspecified convulsions
CPT/HCPCS: 71010

== ENCOUNTER 2017-04-05 01:08 | Emergency (ER) | payer SELFPAY ==
[2017-04-05 04:14] VITALS: BP 112/61
[2017-04-05] MEDS ORDERED: LaMICtal PO ONE (05:33)
[2017-04-05] MEDS ORDERED: KEPPRA PO ONE (05:33)
--- NOTE | 2017-04-05 05:35 | Emergency Department Report ---
HPI - General Chief Complaint: Extremity Problem,Nontraumatic Time Seen by Provider: 04/05/17 05:32 - HPI HPI: Patient states legs are shaking because he missed the dose of his seizure medications. He says he usually gets tremors without taking his Keppra R [place] toe. He was given a prescription in this ED but couldn't afford to fill them. No recent seizures. ED Past Medical Hx - Past Medical History Previous Medical History?: Yes Hx CVA: Yes (TIA 2003) Hx GERD: Yes Hx Seizures: Yes Hx Psychiatric Treatment: Yes (bipolar) Hx Asthma: Yes Hx HIV: Yes Additional medical history: right hip fx, left hip fx. herniated and ruptured discs - Surgical History Past Surgical History?: Yes Additional Surgical History: Left hip surgery - Social History Smoking Status: Never Smoker Substance Use Type: None - Medications Home Medications: Home Medications Medication Instructions Recorded Confirmed Last Taken Type Atorvastatin [Lipitor] 40 mg PO QHS 10/09/14 02/24/17 02/24/17 History Cetirizine HCl [All Day Allergy] 10 mg PO Q4H PRN #60 capsule 02/18/16 02/24/17 02/24/17 Rx Darunavir [Prezista] 400 mg PO QDAY #30 tablet 02/18/16 02/24/17 02/24/17 Rx Emtricitabin/Tenofovir [TRUVADA 1 tab PO DAILY #30 tablet 02/18/16 02/24/17 Rx 200-300 mg] [place] 1% [[place] 1%] 60 ml TP TID 07/04/16 02/24/17 Unknown History Ritonavir [Norvir] 100 mg PO QDAY #30 cap 10/13/16 02/24/17 02/24/17 Rx ALBUTEROL Inhaler [ProAir HFA 2 puff IH QID PRN #1 inhalation 10/29/16 02/24/17 Unknown Rx Inhaler] Cromolyn Sodium [Cromolyn Sodium 1 - 2 drop OU Q6HR #10 ml 10/29/16 02/24/17 Rx 4%] Cyclobenzaprine [Flexeril 10 MG 10 mg PO TID PRN #30 tablet 10/29/16 02/24/17 Rx TAB] Fluticasone [Flonase] 1 spray NS QDAY #1 bottle 10/29/16 02/24/17 02/24/17 Rx Acetaminophen [Tylenol] 500 mg PO Q4HR 02/24/17 02/24/17 02/24/17 History Gabapentin [Neurontin] 300 mg PO Q8HR 02/24/17 02/24/17 02/24/17 History Ibuprofen [Motrin] 800 mg PO Q6HR 02/24/17 02/24/17 02/24/17 History traMADol [Ultram 50 MG tab] 100 mg PO TID PRN 02/24/17 02/24/17 02/24/17 History Acetaminophen [Acetaminophen TAB] 975 mg PO Q6HR PRN #180 tablet 02/25/17 Unknown Rx Cyclobenzaprine [Flexeril] 10 mg PO TID PRN #30 tablet 02/25/17 Unknown Rx Tramadol HCl [traMADol ER 100 MG] 100 mg PO TID #45 tbmp.24hr 02/25/17 Unknown Rx predniSONE [Deltasone] 60 mg PO QDAY #15 tab 02/25/17 Unknown Rx Acetaminophen [Acetaminophen TAB] 325 mg PO Q6HR PRN #30 tablet 03/07/17 Unknown Rx Fluticasone/Salmeterol [Advair 1 puff IH BID #1 disk.w.dev 03/07/17 Unknown Rx Diskus 250-50 mcg] HYDROcodone/APAP 5-325 [[place] 1 each PO Q6HR PRN #20 tablet 03/07/17 Unknown Rx 5/325] HYDROcodone/APAP 5-325 [[place] 1 each PO Q8H PRN #9 tablet 03/14/17 Unknown Rx 5/325] methOCARBAMOL [Robaxin TAB] 500 mg PO TID #21 tab 03/14/17 Unknown Rx traMADol [Ultram] 50 mg PO Q6HR PRN #8 tablet 03/24/17 Unknown Rx Ibuprofen [Motrin 800 MG tab] 800 mg PO Q8HR PRN #30 tablet 04/02/17 Unknown Rx lamoTRIgine [LaMICtal] 150 mg PO BID #60 tablet 04/02/17 Unknown Rx levETIRAcetam [Keppra TAB] 1,000 mg PO BID #60 tab 04/02/17 Unknown Rx ED Review of Systems ROS: Stated complaint: TREMORS IN LEGS/SEIZURE MEDS Other details as noted in HPI Comment: All other systems reviewed and negative Musculoskeletal: as per HPI Neurological: weakness, other (tremors) Physical Exam - Physical Exam Vital Signs: Vital Signs 04/05/17 04/05/17 01:45 04:13 Temperature 98.5 F 97.9 F Pulse Rate 75 68 Respiratory 18 18 Rate Blood Pressure 120/68 112/61 O2 Sat by Pulse 96 Oximetry Physical Exam: - General Limitations: No Limitations General appearance: alert, in no apparent distress - Head Head exam: Present: atraumatic, normocephalic - Eye Eye exam: Present: normal appearance - ENT ENT exam: Present: mucous membranes moist - Neck Neck exam: Present: normal inspection - Respiratory Respiratory exam: Present: normal lung sounds bilaterally. Absent: respiratory distress - Cardiovascular Cardiovascular Exam: Present: normal rhythm, tachycardia. Absent: systolic murmur, diastolic murmur, rubs, gallop - GI/Abdominal GI/Abdominal exam: Present: soft, normal bowel sounds - Extremities Exam Extremities exam: Present: normal inspection - Back Exam Back exam: Present: normal inspection - Neurological Exam Neurological exam: Present: alert, oriented X3, - Skin Skin exam: Present: warm, dry, intact, normal color. Absent: rash ED Course Vital Signs 04/05/17 04/05/17 01:45 04:13 Temperature 98.5 F 97.9 F Pulse Rate 75 68 Respiratory 18 18 Rate Blood Pressure 120/68 112/61 O2 Sat by Pulse 96 Oximetry Critical care attestation.: If time is entered above; I have spent that time in minutes in the direct care of this critically ill patient, excluding procedure time. ED Disposition Clinical Impression: Tremors of nervous system Disposition: DC-01 TO HOME OR SELFCARE Is pt being admited?: No Does the pt Need Aspirin: No Condition: Stable Instructions: Recurrent Seizures Adult (ED) Referrals: PRIMARY CARE,MD [Primary Care Provider] - 3-5 Days
== END 2017-04-05 07:05 | disposition home or self-care (01) ==
LOC: ED 01:08
DX: R25.1 Tremor, unspecified (principal); K21.9 Gastro-esophageal reflux disease without esophagitis; J45.909 Unspecified asthma, uncomplicated; Z86.73 Personal history of transient ischemic attack (TIA), and cerebral infarction without residual deficits
CPT/HCPCS: 99283

== ENCOUNTER 2017-04-12 00:10 | Emergency (ER) | payer SELFPAY ==
[2017-04-12 00:31] VITALS: BP 136/91
--- NOTE | 2017-04-12 02:10 | XRay Report ---
FINAL REPORT PROCEDURE: XR RIBS UNILAT 2V LT TECHNIQUE: LEFT rib radiographs, 3 views of the ribs, including PA chest. HISTORY: LEFT RIB PAIN COMPARISON: 03/25/2017 FINDINGS: Heart: Normal. Mediastinum/Vessels: Normal. Lungs: There is suboptimal inspiration. There are no infiltrates. Pleural space: There is no pleural effusion or pneumothorax. Pneumothorax: None. Bony thorax/ribs: There are healing fractures of the left ribs numbers 5 and 6. No acute fracture is seen. IMPRESSION: There is suboptimal inspiration. There are no infiltrates. There is no pleural effusion or pneumothorax. There are healing fractures of the left ribs numbers 5 and 6. No acute fracture is seen.
[2017-04-12] MEDS ORDERED: NORCO 5/325 PO ONE (05:11)
[2017-04-12 05:40] LABS: Basophils % (Auto) 0.4 % (0.0-1.8); Eosinophils % (Auto) 1.3 % (0.0-4.3); Hematocrit 38.8 % (35.5-45.6); Mean Corpuscular HGB Conc 33 % (32-34); Mean Corpuscular Hemoglobin 31 pg (28-32); Mean Corpuscular Volume 94 fl (84-94); Platelet Count 246 K/mm3 (140-440); Red Blood Count 4.15 M/mm3 (3.65-5.03); Red Cell Distribution Width 15.5 % (13.2-15.2); White Blood Count 6.1 K/mm3 (4.5-11.0)
--- NOTE | 2017-04-12 06:06 | Emergency Department Report ---
ED Chest Pain HPI - General Chief Complaint: Pain General Stated Complaint: LT SIDE RIB PAIN Time Seen by Provider: 04/12/17 04:36 Source: patient Mode of arrival: Wheelchair Limitations: No Limitations - History of Present Illness Initial Comments: 63-year-old male past medical history CVA, multiple falls, history of broken ribs, history of asthma, history of HIV, history of bipolar disorder, history of seizures presents with complaint of left-sided chest wall pain. Patient states he has had multiple falls over the last month denies any head trauma denies any loss of consciousness but states that he is having persistent pain in his left-sided chest. Patient is awake alert and oriented 3 does not appear to be in acute distress. Patient states that he is homeless. Patient states the pain is currently 8 out of 10 in his left chest wall region. Patient is a smoker. MD Complaint: chest pain Onset/Timin -: week(s) Onset: during rest Pain Location: left chest Severity scale (0 -10): 6 Quality: aching, sharp Consistency: intermittent Improves With: nothing Worsens With: nothing Treatments Prior to Arrival: none Aspirin use within the Past 7 Days: (0) No - Related Data Home Medications Medication Instructions Recorded Confirmed Last Taken Atorvastatin [Lipitor] 40 mg PO QHS 10/09/14 02/24/17 02/24/17 [place] 1% [[place] 1%] 60 ml TP TID 07/04/16 02/24/17 Unknown Acetaminophen [Tylenol] 500 mg PO Q4HR 02/24/17 02/24/17 02/24/17 Gabapentin [Neurontin] 300 mg PO Q8HR 02/24/17 02/24/17 02/24/17 Ibuprofen [Motrin] 800 mg PO Q6HR 02/24/17 02/24/17 02/24/17 traMADol [Ultram 50 MG tab] 100 mg PO TID PRN 02/24/17 02/24/17 02/24/17 Previous Rx's Medication Instructions Recorded Last Taken Type Cetirizine HCl [All Day Allergy] 10 mg PO Q4H PRN #60 capsule 02/18/16 02/24/17 Rx Darunavir [Prezista] 400 mg PO QDAY #30 tablet 02/18/16 02/24/17 Rx Emtricitabin/Tenofovir [TRUVADA 1 tab PO DAILY #30 tablet 02/18/16 02/24/17 Rx 200-300 mg] Ritonavir [Norvir] 100 mg PO QDAY #30 cap 10/13/16 02/24/17 Rx ALBUTEROL Inhaler [ProAir HFA 2 puff IH QID PRN #1 inhalation 10/29/16 Unknown Rx Inhaler] Cromolyn Sodium [Cromolyn Sodium 1 - 2 drop OU Q6HR #10 ml 10/29/16 02/24/17 Rx 4%] Cyclobenzaprine [Flexeril 10 MG 10 mg PO TID PRN #30 tablet 10/29/16 02/24/17 Rx TAB] Fluticasone [Flonase] 1 spray NS QDAY #1 bottle 10/29/16 02/24/17 Rx Acetaminophen [Acetaminophen TAB] 975 mg PO Q6HR PRN #180 tablet 02/25/17 Unknown Rx Cyclobenzaprine [Flexeril] 10 mg PO TID PRN #30 tablet 02/25/17 Unknown Rx Tramadol HCl [traMADol ER 100 MG] 100 mg PO TID #45 tbmp.24hr 02/25/17 Unknown Rx predniSONE [Deltasone] 60 mg PO QDAY #15 tab 02/25/17 Unknown Rx Acetaminophen [Acetaminophen TAB] 325 mg PO Q6HR PRN #30 tablet 03/07/17 Unknown Rx Fluticasone/Salmeterol [Advair 1 puff IH BID #1 disk.w.dev 03/07/17 Unknown Rx Diskus 250-50 mcg] HYDROcodone/APAP 5-325 [[place] 1 each PO Q6HR PRN #20 tablet 03/07/17 Unknown Rx 5/325] HYDROcodone/APAP 5-325 [[place] 1 each PO Q8H PRN #9 tablet 03/14/17 Unknown Rx 5/325] methOCARBAMOL [Robaxin TAB] 500 mg PO TID #21 tab 03/14/17 Unknown Rx traMADol [Ultram] 50 mg PO Q6HR PRN #8 tablet 03/24/17 Unknown Rx Ibuprofen [Motrin 800 MG tab] 800 mg PO Q8HR PRN #30 tablet 04/02/17 Unknown Rx lamoTRIgine [LaMICtal] 150 mg PO BID #60 tablet 04/02/17 Unknown Rx levETIRAcetam [Keppra TAB] 1,000 mg PO BID #60 tab 04/02/17 Unknown Rx HYDROcodone/APAP 5-325 [[place] 1 each PO Q6HR PRN #9 tablet 04/12/17 Unknown Rx 5/325] Allergies Allergy/AdvReac Type Severity Reaction Status Date / Time No Known Allergies Allergy Verified 10/28/16 21:51 Heart Score - HEART Score History: Slightly suspicious EKG: Normal Age: 45-65 Risk factors: 1-2 risk factors Troponin: < normal limit HEART Score: 2 ED Review of Systems ROS: Stated complaint: LT SIDE RIB PAIN Other details as noted in HPI Constitutional: denies: chills, fever Eyes: denies: eye pain, eye discharge, vision change ENT: denies: ear pain, throat pain Respiratory: denies: cough, shortness of breath, wheezing Cardiovascular: chest pain. denies: palpitations Endocrine: no symptoms reported Gastrointestinal: denies: abdominal pain, nausea, diarrhea Genitourinary: denies: urgency, dysuria Musculoskeletal: denies: back pain, joint swelling, arthralgia Skin: denies: rash, lesions Neurological: denies: headache, weakness, paresthesias Psychiatric: denies: anxiety, depression Hematological/Lymphatic: denies: easy bleeding, easy bruising ED Past Medical Hx - Past Medical History Previous Medical History?: Yes Hx CVA: Yes (TIA 2003) Hx GERD: Yes Hx Seizures: Yes Hx Psychiatric Treatment: Yes (bipolar) Hx Asthma: Yes Hx HIV: Yes Additional medical history: right hip fx, left hip fx. herniated and ruptured discs - Surgical History Past Surgical History?: Yes Additional Surgical History: Left hip surgery - Social History Smoking Status: Unknown if ever smoked Substance Use Type: None - Medications Home Medications: Home Medications Medication Instructions Recorded Confirmed Last Taken Type Atorvastatin [Lipitor] 40 mg PO QHS 10/09/14 02/24/17 02/24/17 History Cetirizine HCl [All Day Allergy] 10 mg PO Q4H PRN #60 capsule 02/18/16 02/24/17 02/24/17 Rx Darunavir [Prezista] 400 mg PO QDAY #30 tablet 02/18/16 02/24/17 02/24/17 Rx Emtricitabin/Tenofovir [TRUVADA 1 tab PO DAILY #30 tablet 02/18/16 02/24/17 Rx 200-300 mg] [place] 1% [[place] 1%] 60 ml TP TID 07/04/16 02/24/17 Unknown History Ritonavir [Norvir] 100 mg PO QDAY #30 cap 10/13/16 02/24/17 02/24/17 Rx ALBUTEROL Inhaler [ProAir HFA 2 puff IH QID PRN #1 inhalation 10/29/16 02/24/17 Unknown Rx Inhaler] Cromolyn Sodium [Cromolyn Sodium 1 - 2 drop OU Q6HR #10 ml 10/29/16 02/24/17 Rx 4%] Cyclobenzaprine [Flexeril 10 MG 10 mg PO TID PRN #30 tablet 10/29/16 02/24/17 Rx TAB] Fluticasone [Flonase] 1 spray NS QDAY #1 bottle 10/29/16 02/24/17 02/24/17 Rx Acetaminophen [Tylenol] 500 mg PO Q4HR 02/24/17 02/24/17 02/24/17 History Gabapentin [Neurontin] 300 mg PO Q8HR 02/24/17 02/24/17 02/24/17 History Ibuprofen [Motrin] 800 mg PO Q6HR 02/24/17 02/24/17 02/24/17 History traMADol [Ultram 50 MG tab] 100 mg PO TID PRN 02/24/17 02/24/17 02/24/17 History Acetaminophen [Acetaminophen TAB] 975 mg PO Q6HR PRN #180 tablet 02/25/17 Unknown Rx Cyclobenzaprine [Flexeril] 10 mg PO TID PRN #30 tablet 02/25/17 Unknown Rx Tramadol HCl [traMADol ER 100 MG] 100 mg PO TID #45 tbmp.24hr 02/25/17 Unknown Rx predniSONE [Deltasone] 60 mg PO QDAY #15 tab 02/25/17 Unknown Rx Acetaminophen [Acetaminophen TAB] 325 mg PO Q6HR PRN #30 tablet 03/07/17 Unknown Rx Fluticasone/Salmeterol [Advair 1 puff IH BID #1 disk.w.dev 03/07/17 Unknown Rx Diskus 250-50 mcg] HYDROcodone/APAP 5-325 [[place] 1 each PO Q6HR PRN #20 tablet 03/07/17 Unknown Rx 5/325] HYDROcodone/APAP 5-325 [[place] 1 each PO Q8H PRN #9 tablet 03/14/17 Unknown Rx 5/325] methOCARBAMOL [Robaxin TAB] 500 mg PO TID #21 tab 03/14/17 Unknown Rx traMADol [Ultram] 50 mg PO Q6HR PRN #8 tablet 03/24/17 Unknown Rx Ibuprofen [Motrin 800 MG tab] 800 mg PO Q8HR PRN #30 tablet 04/02/17 Unknown Rx lamoTRIgine [LaMICtal] 150 mg PO BID #60 tablet 04/02/17 Unknown Rx levETIRAcetam [Keppra TAB] 1,000 mg PO BID #60 tab 04/02/17 Unknown Rx HYDROcodone/APAP 5-325 [[place] 1 each PO Q6HR PRN #9 tablet 04/12/17 Unknown Rx 5/325] ED Physical Exam - General Limitations: No Limitations General appearance: alert, in no apparent distress - Head Head exam: Present: atraumatic, normocephalic - Eye Eye exam: Present: normal appearance, PERRL, EOMI - ENT ENT exam: Present: mucous membranes moist - Neck Neck exam: Present: normal inspection, full ROM - Respiratory Respiratory exam: Present: normal lung sounds bilaterally, chest wall tenderness (patient has reproducible chest wall tenderness along the left midaxillary line). Absent: respiratory distress - Cardiovascular Cardiovascular Exam: Present: regular rate, normal rhythm. Absent: systolic murmur, diastolic murmur, rubs, gallop - GI/Abdominal GI/Abdominal exam: Present: soft, normal bowel sounds - Rectal Rectal exam: Present: deferred - Extremities Exam Extremities exam: Present: normal inspection - Back Exam Back exam: Present: normal inspection - Neurological Exam Neurological exam: Present: alert, oriented X3 - Psychiatric Psychiatric exam: Present: normal affect, normal mood - Skin Skin exam: Present: warm, dry, intact, normal color. Absent: rash ED Course Vital Signs 04/12/17 00:27 Temperature 99.0 F Pulse Rate 79 Respiratory 20 Rate Blood Pressure 136/91 O2 Sat by Pulse 96 Oximetry KASSI score - Kassi Score Age > 65: (0) No Aspirin use within the Past 7 Days: (0) No 3 or more CAD Risk Factors: (1) Yes 2 or more Angina events in past 24 hrs: (0) No Known CAD with more than 50% Stenosis: (0) No Elevated Cardiac Markers: (0) No ST Deviation Greater than 0.5mm: (0) No KASSI Score: 1 ED Medical Decision Making - Lab Data Result diagrams: 04/12/17 05:17 04/12/17 05:17 - Medical Decision Making A/P: Left chest wall pain, healing rib fractures 1-left sided chest wall pain, patient has visible healing fractures left chest wall 2-short course of norco when necessary 3-patient already has has been given incentive spirometer 4- follow-up with primary care doctor Critical care attestation.: If time is entered above; I have spent that time in minutes in the direct care of this critically ill patient, excluding procedure time. ED Disposition Clinical Impression: Left rib fracture Qualifiers: Encounter type: initial encounter Rib fracture type: multiple ribs Fracture type: closed Qualified Code(s): S22.42XA - Multiple fractures of ribs, left side , initial encounter for closed fracture Disposition: DC-01 TO HOME OR SELFCARE Is pt being admited?: No Does the pt Need Aspirin: No Condition: Stable Instructions: How to Use an Incentive Spirometer (ED), Rib Fracture (ED) Prescriptions: HYDROcodone/APAP 5-325 [[place] 5/325] 1 each PO Q6HR PRN #9 tablet PRN Reason: Pain Referrals: [facility] [Outside] - 3-5 Days [facility] [Outside] - 3-5 Days
--- NOTE | 2017-04-12 06:30 | Cat Scan Report ---
FINAL REPORT PROCEDURE: CT CHEST WO CON TECHNIQUE: Computerized axial tomography of the chest was performed without contrast material. This study is performed without intravenous contrast and the sensitivity for pathology, including neoplasms, adenopathy, abscess, pulmonary embolism and aortic dissection, is reduced. HISTORY: ? left sided broken ribs COMPARISON: No prior studies are available for comparison. TECHNICAL QUALITY: Satisfactory. FINDINGS: Heart and pericardium: Normal. Thoracic aorta: Normal. Pulmonary vasculature: Normal. Lymph nodes: No enlarged thoracic lymph nodes. Lungs: Lungs are well-expanded. There are mild fibrotic changes and scattered calcified granulomas. There are no infiltrates.. Pleural space: There is no effusion or pneumothorax.. Musculoskeletal structures: There are old fractures of left ribs numbers 5 and 6. There are no acute rib fractures.. There is bone cement in T10, T11 and L1. There are no acute fractures of the thoracic spine. The sternum is intact. Upper abdominal structures: There are bilateral kidney stones.. IMPRESSION: The heart size is normal. Lungs are well-expanded. There are mild fibrotic changes and scattered calcified granulomas. There are no infiltrates.. There is no effusion or pneumothorax.. There are old fractures of left ribs numbers 5 and 6. There are no acute rib fractures.. There is bone cement in T10, T11 and L1. There are bilateral kidney stones.
[2017-04-12 07:40] LABS: Blood Urea Nitrogen 14 mg/dL (9-20); Carbon Dioxide 18 mmol/L (22-30); Glucose 105 mg/dL (75-100)
[2017-04-12 07:41] LABS: Anion Gap 27 mmol/L; Chloride 105.7 mmol/L (98-107); Potassium 4.5 mmol/L (3.6-5.0); Sodium 146 mmol/L (137-145)
[2017-04-12] MEDS ORDERED: MOTRIN PO ONE (08:14)
[2017-04-12] MEDS ORDERED: TYLENOL PO ONE (08:14)
== END 2017-04-12 08:43 | disposition home or self-care (01) ==
LOC: ED 00:10
DX: S22.42XA Multiple fractures of ribs, left side, initial encounter for closed fracture (principal); X58.XXXA Exposure to other specified factors, initial encounter; Y93.9 Activity, unspecified; Y92.9 Unspecified place or not applicable; Y99.9 Unspecified external cause status; K21.9 Gastro-esophageal reflux disease without esophagitis; F31.9 Bipolar disorder, unspecified; J45.909 Unspecified asthma, uncomplicated
CPT/HCPCS: 36415; 71250; 80048; 84484; 85025; 93005; 93010

== ENCOUNTER 2017-04-12 19:28 | Emergency (ER) | payer SELFPAY ==
[2017-04-12 20:09] VITALS: BP 156/89
== END 2017-04-12 22:59 | disposition left against medical advice (07) ==
LOC: ED 19:28
DX: Z53.21 Procedure and treatment not carried out due to patient leaving prior to being seen by health care provider (principal)

== ENCOUNTER 2017-04-19 02:43 | Emergency (ER) | payer SELFPAY ==
[2017-04-19 03:05] VITALS: BP 123/77
--- NOTE | 2017-04-19 04:55 | XRay Report ---
FINAL REPORT PROCEDURE: XR RIBS UNI W PA CHEST 3+V LT TECHNIQUE: Unilateral rib radiographs, 2 views of the LEFT ribs. HISTORY: fall with rib pain COMPARISON: No prior studies are available for comparison. FINDINGS: Lungs: Normal. Pleural space: Normal. Pneumothorax: None. Bony thorax/ribs: No significant abnormality. IMPRESSION: Normal Examination.
[2017-04-19] MEDS ORDERED: TORADOL IM ONE (04:58)
--- NOTE | 2017-04-19 04:59 | XRay Report ---
FINAL REPORT PROCEDURE: XR HIP 2-3V RT TECHNIQUE: RIGHT hip radiographs, AP and lateral views. HISTORY: fall with hip pain COMPARISON: 03/24/2017 FINDINGS: Fracture (s) and/or Dislocation(s): No acute fracture is identified. Osseous remodeling of the proximal femur is identified and most consistent with previous trauma this region.. Joint space(s): Moderate narrowing of the joint spaces. Soft tissues: Mild soft tissue swelling. Bone mineralization: Normal . Foreign bodies: None . IMPRESSION: No acute fracture is identified. Osseous remodeling of the proximal femur is most consistent with previous trauma.
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
--- NOTE | 2017-04-19 05:29 | XRay Report ---
FINAL REPORT PROCEDURE: XR SPINE LUMBOSACRAL 2-3V TECHNIQUE: Sacrum and coccyx radiographs, AP and lateral views. HISTORY: fall spinal tenderness COMPARISON: 02/25/2017 FINDINGS: Fracture(s): No acute fracture. Bone mineralization: Mild generalized osteopenia. There is been previous kyphoplasty involving the T11 and L1 vertebral segment. Mild atherosclerosis from these people IMPRESSION: No acute fracture or dislocation
== END 2017-04-19 06:54 | disposition home or self-care (01) ==
LOC: ED 02:43
DX: R07.81 Pleurodynia (principal); M25.551 Pain in right hip; S39.012A Strain of muscle, fascia and tendon of lower back, initial encounter; K21.9 Gastro-esophageal reflux disease without esophagitis; Z86.73 Personal history of transient ischemic attack (TIA), and cerebral infarction without residual deficits; W01.0XXA Fall on same level from slipping, tripping and stumbling without subsequent striking against object, initial encounter; Y93.89 Activity, other specified; Y92.89 Other specified places as the place of occurrence of the external cause; Y99.8 Other external cause status
CPT/HCPCS: 71101; 72100; 73502; 96372; 99283; J1885

== ENCOUNTER 2017-04-21 00:27 | Emergency (ER) | payer SELFPAY ==
[2017-04-21] MEDS ORDERED: KEPPRA PO ONE (11:41)
[2017-04-21] MEDS ORDERED: LaMICtal PO ONE (11:41)
--- NOTE | 2017-04-21 12:01 | Emergency Department Report ---
HPI - General Chief Complaint: Pain General Time Seen by Provider: 04/21/17 11:39 - HPI HPI: This is a 61-year-old male who presents to the emergency department with the complaint of some chronic pain, chronic sciatica, recurrent falls and for medication refills. The patient has a history of asthma, TIA, GERD, seizure disorder. He has a history of bilateral hip fracture surgery, herniated disks. More recently the patient was seen here multiple times after having a fall that caused left lower rib fractures. He says that he left his prescription for Keppra and Lamictal in his friend's car. The patient lives in [place] and is homeless but says that he has been trying to get back to [place] and believes that his friend is going to help him get a bus or plane ticket there in a few weeks. He is requesting a refill of his seizure medications, gabapentin for his sciatica, and tramadol for his chronic pains. ED Past Medical Hx - Past Medical History Hx CVA: Yes (TIA 2003) Hx GERD: Yes Hx Seizures: Yes Hx Psychiatric Treatment: Yes (bipolar) Hx Asthma: Yes Hx HIV: Yes Additional medical history: right hip fx, left hip fx. herniated and ruptured discs - Surgical History Additional Surgical History: Left hip surgery - Social History Smoking Status: Never Smoker Substance Use Type: Marijuana - Medications Home Medications: Home Medications Medication Instructions Recorded Confirmed Last Taken Type Atorvastatin [Lipitor] 40 mg PO QHS 10/09/14 02/24/17 02/24/17 History Cetirizine HCl [All Day Allergy] 10 mg PO Q4H PRN #60 capsule 02/18/16 02/24/17 02/24/17 Rx Darunavir [Prezista] 400 mg PO QDAY #30 tablet 02/18/16 02/24/17 02/24/17 Rx Emtricitabin/Tenofovir [TRUVADA 1 tab PO DAILY #30 tablet 02/18/16 02/24/17 Rx 200-300 mg] [place] 1% [[place] 1%] 60 ml TP TID 07/04/16 02/24/17 Unknown History Ritonavir [Norvir] 100 mg PO QDAY #30 cap 10/13/16 02/24/17 02/24/17 Rx ALBUTEROL Inhaler [ProAir HFA 2 puff IH QID PRN #1 inhalation 10/29/16 02/24/17 Unknown Rx Inhaler] Cromolyn Sodium [Cromolyn Sodium 1 - 2 drop OU Q6HR #10 ml 10/29/16 02/24/17 Rx 4%] Cyclobenzaprine [Flexeril 10 MG 10 mg PO TID PRN #30 tablet 10/29/16 02/24/17 Rx TAB] Fluticasone [Flonase] 1 spray NS QDAY #1 bottle 10/29/16 02/24/17 02/24/17 Rx Acetaminophen [Tylenol] 500 mg PO Q4HR 02/24/17 02/24/17 02/24/17 History Gabapentin [Neurontin] 300 mg PO Q8HR 02/24/17 02/24/17 02/24/17 History Ibuprofen [Motrin] 800 mg PO Q6HR 02/24/17 02/24/17 02/24/17 History traMADol [Ultram 50 MG tab] 100 mg PO TID PRN 02/24/17 02/24/17 02/24/17 History Acetaminophen [Acetaminophen TAB] 975 mg PO Q6HR PRN #180 tablet 02/25/17 Unknown Rx Cyclobenzaprine [Flexeril] 10 mg PO TID PRN #30 tablet 02/25/17 Unknown Rx Tramadol HCl [traMADol ER 100 MG] 100 mg PO TID #45 tbmp.24hr 02/25/17 Unknown Rx predniSONE [Deltasone] 60 mg PO QDAY #15 tab 02/25/17 Unknown Rx Acetaminophen [Acetaminophen TAB] 325 mg PO Q6HR PRN #30 tablet 03/07/17 Unknown Rx Fluticasone/Salmeterol [Advair 1 puff IH BID #1 disk.w.dev 03/07/17 Unknown Rx Diskus 250-50 mcg] HYDROcodone/APAP 5-325 [[place] 1 each PO Q6HR PRN #20 tablet 03/07/17 Unknown Rx 5/325] HYDROcodone/APAP 5-325 [[place] 1 each PO Q8H PRN #9 tablet 03/14/17 Unknown Rx 5/325] methOCARBAMOL [Robaxin TAB] 500 mg PO TID #21 tab 03/14/17 Unknown Rx HYDROcodone/APAP 5-325 [[place] 1 each PO Q6HR PRN #9 tablet 04/12/17 Unknown Rx 5/325] Ibuprofen [Motrin 600 MG tab] 600 mg PO Q8H PRN #30 tablet 04/19/17 Unknown Rx Ibuprofen [Motrin 800 MG tab] 800 mg PO Q8HR PRN #30 tablet 04/21/17 Unknown Rx lamoTRIgine [LaMICtal] 150 mg PO BID #60 tablet 04/21/17 Unknown Rx levETIRAcetam [Keppra TAB] 1,000 mg PO BID #60 tab 04/21/17 Unknown Rx traMADol [Ultram 50 MG tab] 50 mg PO Q6HR PRN #8 tablet 04/21/17 Unknown Rx ED Review of Systems ROS: Stated complaint: FALL Other details as noted in HPI Comment: All other systems reviewed and negative Constitutional: denies: chills, fever Eyes: denies: eye pain, eye discharge, vision change ENT: denies: ear pain, throat pain Respiratory: denies: cough, shortness of breath, wheezing Cardiovascular: denies: chest pain, palpitations Gastrointestinal: denies: abdominal pain, nausea, diarrhea Genitourinary: denies: urgency, dysuria Musculoskeletal: arthralgia, myalgia Skin: denies: rash, lesions Neurological: denies: headache, numbness Physical Exam - Physical Exam Vital Signs: Vital Signs 04/21/17 04/21/17 00:45 04:39 Temperature 99.2 F 99.2 F Pulse Rate 81 81 Respiratory 18 Rate Blood Pressure 147/92 Blood Pressure 147/92 [Left] O2 Sat by Pulse 98 98 Oximetry Physical Exam: GENERAL: The patient is well-developed well-nourished. HENT: Normocephalic. Atraumatic. Patient has moist mucous membranes. EYES: Extraocular motions are intact. Pupils equal reactive to light bilaterally. NECK: Supple. Trachea is midline. CHEST/LUNGS: Clear to auscultation. There is no respiratory distress noted. HEART/CARDIOVASCULAR: Regular. There is no tachycardia. There is no gallop rub or murmur. ABDOMEN: Abdomen is soft, nontender. Patient has normal bowel sounds. There is no abdominal distention. SKIN: Skin is warm and dry. NEURO: The patient is awake, alert, and oriented. The patient is cooperative. The patient has no focal neurologic deficits. The patient has normal speech. MUSCULOSKELETAL: There is no tenderness or deformity. There is no limitation range of motion. There is no evidence of acute injury. ED Course Vital Signs 04/21/17 04/21/17 00:45 04:39 Temperature 99.2 F 99.2 F Pulse Rate 81 81 Respiratory 18 Rate Blood Pressure 147/92 Blood Pressure 147/92 [Left] O2 Sat by Pulse 98 98 Oximetry ED Medical Decision Making - Lab Data Result diagrams: 04/21/17 12:04 04/21/17 12:04 - Medical Decision Making This is a 61-year-old male who presents the emergency department requesting a medication refill for his seizure medications, neuropathy and pain medications as well. He says that there have been further falls but there is no obvious signs on physical exam of any acute distress or any deformities. He does have a history of rib fractures, bilateral hip fracture and/or replacements. Some basic labs were checked and they were unremarkable. There is no sign of renal insufficiency, hypoglycemia or any significant leukocytosis. The patient is giving the same excuse for losing his seizure medication that he gave the last time I saw him in this emergency department. However the patient is homeless and appears to have 1 individual who drives him around and helps him out and it is possible he continues to leave his medications and her prescriptions in this individual's car. As the patient does have a seizure disorder, do not want to leave him without any antiepileptics and he will get a refill of his Keppra and Lamictal. Plan to concerned to give the patient both a full prescription of gabapentin and pain medication as I believe it would further sedate him and cause future falls. He was given 1 dose of gabapentin in the emergency department for treatment of sciatica and then given a very small prescription of pain medication. He was once again given referrals for primary care but says that he is willing to [place] in a few weeks. He has been encouraged to return to the emergency department with any distress. Critical Care Time: No Critical care attestation.: If time is entered above; I have spent that time in minutes in the direct care of this critically ill patient, excluding procedure time. ED Disposition Clinical Impression: Medication refill, History of seizures Chronic pain Qualifiers: Chronic pain type: other chronic pain Qualified Code(s): G89.29 - Other chronic pain Disposition: DC- TO HOME OR SELFCARE Is pt being admited?: No Condition: Stable Instructions: Epilepsy (ED), Musculoskeletal Pain (ED) Additional Instructions: Please follow up with a primary care physician as soon as possible. Return to the emergency Department with any worsening of your symptoms or any acute distress. You have been prescribed a medication that is sedating and therefore should not be taken prior to driving, working, and responsible for children and in no way should be mixed with alcohol of any quantity. Prescriptions: Ibuprofen [Motrin 800 MG tab] 800 mg PO Q8HR PRN #30 tablet PRN Reason: Pain lamoTRIgine [LaMICtal] 150 mg PO BID #60 tablet levETIRAcetam [Keppra TAB] 1,000 mg PO BID #60 tab traMADol [Ultram 50 MG tab] 50 mg PO Q6HR PRN #8 tablet PRN Reason: Pain Referrals: PRIMARY CARE, [Primary Care Provider] - 3-5 Days [facility] [Outside] - 3-5 Days [facility] [Outside] - 3-5 Days Time of Disposition: 13:19
[2017-04-21 12:21] LABS: Hematocrit 36.9 % (35.5-45.6); Hemoglobin 12.6 gm/dl (11.8-15.2); Mean Corpuscular HGB Conc 34 % (32-34); Mean Corpuscular Hemoglobin 32 pg (28-32); Mean Corpuscular Volume 92 fl (84-94); Platelet Count 244 K/mm3 (140-440); Red Cell Distribution Width 15.4 % (13.2-15.2); White Blood Count 4.5 K/mm3 (4.5-11.0)
[2017-04-21 12:33] LABS: Anion Gap 17 mmol/L; Blood Urea Nitrogen 18 mg/dL (9-20); Calcium 8.8 mg/dL (8.4-10.2); Carbon Dioxide 24 mmol/L (22-30); Chloride 103.8 mmol/L (98-107); Glucose 121 mg/dL (75-100); Potassium 3.9 mmol/L (3.6-5.0); Sodium 141 mmol/L (137-145)
[2017-04-21] MEDS ORDERED: NEURONTIN PO ONE (12:50)
[2017-04-21 14:19] VITALS: BP 153/88
== END 2017-04-21 14:19 | disposition home or self-care (01) ==
LOC: ED 00:27
DX: G89.29 Other chronic pain (principal); K21.9 Gastro-esophageal reflux disease without esophagitis; F31.9 Bipolar disorder, unspecified; J45.909 Unspecified asthma, uncomplicated; R56.9 Unspecified convulsions; F12.10 Cannabis abuse, uncomplicated
CPT/HCPCS: 36415; 80048; 85027; 99284

== ENCOUNTER 2017-04-22 14:24 | Emergency (ER) | payer SELFPAY ==
[2017-04-22 14:36] VITALS: BP 110/76
[2017-04-22] MEDS ORDERED: MOTRIN PO ONE (20:41)
--- NOTE | 2017-04-22 21:51 | Emergency Department Report ---
ED Back Pain/Injury HPI - General Chief Complaint: Back Pain/Injury Stated Complaint: HIP/BACK PAIN Time Seen by Provider: 04/22/17 19:13 Source: patient Limitations: No Limitations - History of Present Illness Initial Comments: This is a 61-year-old male that presents with chronic back pain. Patient denies any trauma to the region. Patient stated he was here yesterday and received a prescription for gabapentin and stating he does not want Pain and wants Percocet. Based denies any numbness, tingling, fever, chills, nausea, vomiting, chest pain or shortness of breath. He denies any allergies. Past medical history includes asthma, CVA, GERD, HIV, bipolar and seizures. Patient denies any bladder or bowel stability. Denies decreased range of motion or abnormal gait. MD Complaint: back pain -: Gradual Similar Symptoms Previously: Yes Radiation: none Severity scale (0 -10): 5 Quality: aching Consistency: intermittent Improves With: none Worsens With: none Associated Symptoms: denies other symptoms. denies: confusion, weakness, chest pain, numbness, difficulty walking, cough, difficulty urinating, diaphoresis, incontinence, fever/chills, constipation, headaches, abdominal pain, loss of appetite, malaise, nausea/vomiting, rash, seizure, shortness of breath, syncope - Related Data Home Medications Medication Instructions Recorded Confirmed Last Taken Atorvastatin [Lipitor] 40 mg PO QHS 10/09/14 02/24/17 02/24/17 [place] 1% [[place]well 1%] 60 ml TP TID 07/04/16 02/24/17 Unknown Acetaminophen [Tylenol] 500 mg PO Q4HR 02/24/17 02/24/17 02/24/17 Gabapentin [Neurontin] 300 mg PO Q8HR 02/24/17 02/24/17 02/24/17 Ibuprofen [Motrin] 800 mg PO Q6HR 02/24/17 02/24/17 02/24/17 traMADol [Ultram 50 MG tab] 100 mg PO TID PRN 02/24/17 02/24/17 02/24/17 Previous Rx's Medication Instructions Recorded Last Taken Type Cetirizine HCl [All Day Allergy] 10 mg PO Q4H PRN #60 capsule 02/18/16 02/24/17 Rx Darunavir [Prezista] 400 mg PO QDAY #30 tablet 02/18/16 02/24/17 Rx Emtricitabin/Tenofovir [TRUVADA 1 tab PO DAILY #30 tablet 02/18/16 02/24/17 Rx 200-300 mg] Ritonavir [Norvir] 100 mg PO QDAY #30 cap 10/13/16 02/24/17 Rx ALBUTEROL Inhaler [ProAir HFA 2 puff IH QID PRN #1 inhalation 10/29/16 Unknown Rx Inhaler] Cromolyn Sodium [Cromolyn Sodium 1 - 2 drop OU Q6HR #10 ml 10/29/16 02/24/17 Rx 4%] Cyclobenzaprine [Flexeril 10 MG 10 mg PO TID PRN #30 tablet 10/29/16 02/24/17 Rx TAB] Fluticasone [Flonase] 1 spray NS QDAY #1 bottle 10/29/16 02/24/17 Rx Acetaminophen [Acetaminophen TAB] 975 mg PO Q6HR PRN #180 tablet 02/25/17 Unknown Rx Cyclobenzaprine [Flexeril] 10 mg PO TID PRN #30 tablet 02/25/17 Unknown Rx Tramadol HCl [traMADol ER 100 MG] 100 mg PO TID #45 tbmp.24hr 02/25/17 Unknown Rx predniSONE [Deltasone] 60 mg PO QDAY #15 tab 02/25/17 Unknown Rx Acetaminophen [Acetaminophen TAB] 325 mg PO Q6HR PRN #30 tablet 03/07/17 Unknown Rx Fluticasone/Salmeterol [Advair 1 puff IH BID #1 disk.w.dev 03/07/17 Unknown Rx Diskus 250-50 mcg] HYDROcodone/APAP 5-325 [[place] 1 each PO Q6HR PRN #20 tablet 03/07/17 Unknown Rx 5/325] HYDROcodone/APAP 5-325 [[place] 1 each PO Q8H PRN #9 tablet 03/14/17 Unknown Rx 5/325] methOCARBAMOL [Robaxin TAB] 500 mg PO TID #21 tab 03/14/17 Unknown Rx HYDROcodone/APAP 5-325 [[place] 1 each PO Q6HR PRN #9 tablet 04/12/17 Unknown Rx 5/325] Ibuprofen [Motrin 600 MG tab] 600 mg PO Q8H PRN #30 tablet 04/19/17 Unknown Rx Ibuprofen [Motrin 800 MG tab] 800 mg PO Q8HR PRN #30 tablet 04/21/17 Unknown Rx lamoTRIgine [LaMICtal] 150 mg PO BID #60 tablet 04/21/17 Unknown Rx levETIRAcetam [Keppra TAB] 1,000 mg PO BID #60 tab 04/21/17 Unknown Rx traMADol [Ultram 50 MG tab] 50 mg PO Q6HR PRN #8 tablet 04/21/17 Unknown Rx Ibuprofen [Motrin 600 MG tab] 600 mg PO Q8H PRN #30 tablet 04/22/17 Unknown Rx Allergies Allergy/AdvReac Type Severity Reaction Status Date / Time No Known Allergies Allergy Verified 10/28/16 21:51 ED Review of Systems ROS: Stated complaint: HIP/BACK PAIN Other details as noted in HPI Constitutional: denies: chills, fever Eyes: denies: eye pain, eye discharge, vision change ENT: denies: ear pain, throat pain Respiratory: denies: cough, shortness of breath, wheezing Cardiovascular: denies: chest pain, palpitations Endocrine: no symptoms reported Gastrointestinal: denies: abdominal pain, nausea, diarrhea Genitourinary: denies: urgency, dysuria Musculoskeletal: denies: back pain, joint swelling, arthralgia Skin: denies: rash, lesions Neurological: denies: headache, weakness, paresthesias Psychiatric: denies: anxiety, depression Hematological/Lymphatic: denies: easy bleeding, easy bruising ED Past Medical Hx - Past Medical History Hx CVA: Yes (TIA 2003) Hx GERD: Yes Hx Seizures: Yes Hx Psychiatric Treatment: Yes (bipolar) Hx Asthma: Yes Hx HIV: Yes Additional medical history: right hip fx, left hip fx. herniated and ruptured discs - Surgical History Past Surgical History?: Yes Additional Surgical History: Left hip surgery - Social History Smoking Status: Never Smoker Substance Use Type: None - Medications Home Medications: Home Medications Medication Instructions Recorded Confirmed Last Taken Type Atorvastatin [Lipitor] 40 mg PO QHS 10/09/14 02/24/17 02/24/17 History Cetirizine HCl [All Day Allergy] 10 mg PO Q4H PRN #60 capsule 02/18/16 02/24/17 02/24/17 Rx Darunavir [Prezista] 400 mg PO QDAY #30 tablet 02/18/16 02/24/17 02/24/17 Rx Emtricitabin/Tenofovir [TRUVADA 1 tab PO DAILY #30 tablet 02/18/16 02/24/17 Rx 200-300 mg] [place] 1% [[place]well 1%] 60 ml TP TID 07/04/16 02/24/17 Unknown History Ritonavir [Norvir] 100 mg PO QDAY #30 cap 10/13/16 02/24/17 02/24/17 Rx ALBUTEROL Inhaler [ProAir HFA 2 puff IH QID PRN #1 inhalation 10/29/16 02/24/17 Unknown Rx Inhaler] Cromolyn Sodium [Cromolyn Sodium 1 - 2 drop OU Q6HR #10 ml 10/29/16 02/24/17 Rx 4%] Cyclobenzaprine [Flexeril 10 MG 10 mg PO TID PRN #30 tablet 10/29/16 02/24/17 Rx TAB] Fluticasone [Flonase] 1 spray NS QDAY #1 bottle 10/29/16 02/24/17 02/24/17 Rx Acetaminophen [Tylenol] 500 mg PO Q4HR 02/24/17 02/24/17 02/24/17 History Gabapentin [Neurontin] 300 mg PO Q8HR 02/24/17 02/24/17 02/24/17 History Ibuprofen [Motrin] 800 mg PO Q6HR 02/24/17 02/24/17 02/24/17 History traMADol [Ultram 50 MG tab] 100 mg PO TID PRN 02/24/17 02/24/17 02/24/17 History Acetaminophen [Acetaminophen TAB] 975 mg PO Q6HR PRN #180 tablet 02/25/17 Unknown Rx Cyclobenzaprine [Flexeril] 10 mg PO TID PRN #30 tablet 02/25/17 Unknown Rx Tramadol HCl [traMADol ER 100 MG] 100 mg PO TID #45 tbmp.24hr 02/25/17 Unknown Rx predniSONE [Deltasone] 60 mg PO QDAY #15 tab 02/25/17 Unknown Rx Acetaminophen [Acetaminophen TAB] 325 mg PO Q6HR PRN #30 tablet 03/07/17 Unknown Rx Fluticasone/Salmeterol [Advair 1 puff IH BID #1 disk.w.dev 03/07/17 Unknown Rx Diskus 250-50 mcg] HYDROcodone/APAP 5-325 [[place] 1 each PO Q6HR PRN #20 tablet 03/07/17 Unknown Rx 5/325] HYDROcodone/APAP 5-325 [[place] 1 each PO Q8H PRN #9 tablet 03/14/17 Unknown Rx 5/325] methOCARBAMOL [Robaxin TAB] 500 mg PO TID #21 tab 03/14/17 Unknown Rx HYDROcodone/APAP 5-325 [[place] 1 each PO Q6HR PRN #9 tablet 04/12/17 Unknown Rx 5/325] Ibuprofen [Motrin 600 MG tab] 600 mg PO Q8H PRN #30 tablet 04/19/17 Unknown Rx Ibuprofen [Motrin 800 MG tab] 800 mg PO Q8HR PRN #30 tablet 04/21/17 Unknown Rx lamoTRIgine [LaMICtal] 150 mg PO BID #60 tablet 04/21/17 Unknown Rx levETIRAcetam [Keppra TAB] 1,000 mg PO BID #60 tab 04/21/17 Unknown Rx traMADol [Ultram 50 MG tab] 50 mg PO Q6HR PRN #8 tablet 04/21/17 Unknown Rx Ibuprofen [Motrin 600 MG tab] 600 mg PO Q8H PRN #30 tablet 04/22/17 Unknown Rx ED Physical Exam - General Limitations: No Limitations General appearance: alert, in no apparent distress - Head Head exam: Present: atraumatic, normocephalic, normal inspection - Eye Eye exam: Present: normal appearance, PERRL, EOMI. Absent: scleral icterus, conjunctival injection, nystagmus, periorbital swelling, periorbital tenderness Pupils: Present: normal accommodation - ENT ENT exam: Present: normal exam, normal orophraynx, mucous membranes moist, TM's normal bilaterally, normal external ear exam - Neck Neck exam: Present: normal inspection, full ROM. Absent: tenderness, meningismus, lymphadenopathy, thyromegaly - Respiratory Respiratory exam: Present: normal lung sounds bilaterally. Absent: respiratory distress, wheezes, rales, rhonchi, stridor, chest wall tenderness, accessory muscle use, decreased breath sounds, prolonged expiratory - Cardiovascular Cardiovascular Exam: Present: regular rate, normal rhythm, normal heart sounds. Absent: bradycardia, tachycardia, irregular rhythm, systolic murmur, diastolic murmur, rubs, gallop - GI/Abdominal GI/Abdominal exam: Present: soft, normal bowel sounds. Absent: distended, tenderness, guarding, rebound, rigid, diminished bowel sounds - Rectal Rectal exam: Present: deferred - Extremities Exam Extremities exam: Present: normal inspection, full ROM, normal capillary refill. Absent: tenderness, pedal edema, joint swelling, calf tenderness - Back Exam Back exam: Present: normal inspection, full ROM. Absent: tenderness, CVA tenderness (R), CVA tenderness (L), muscle spasm, paraspinal tenderness, vertebral tenderness, rash noted - Expanded Back Exam Expanded Back exam: Present: normal rectal tone. Absent: saddle anesthesia Back exam: Negative Straight Leg Raising: Left, Right - Neurological Exam Neurological exam: Present: alert, oriented X3, CN II-XII intact, normal gait, reflexes normal - Psychiatric Psychiatric exam: Present: normal affect, normal mood - Skin Skin exam: Present: warm, dry, intact, normal color. Absent: rash ED Course Vital Signs 04/22/17 04/22/17 14:31 20:24 Temperature 98.3 F Pulse Rate 81 Respiratory 16 16 Rate Blood Pressure 110/76 [Right] O2 Sat by Pulse 100 Oximetry - Reevaluation(s) Reevaluation #1: 04/22/17 21:49 Patient is speaking in full sentences with no signs of distress noted. Reevaluation #2: 04/22/17 21:49 [place] [employer] has been obtained and indicates recent Percocet and is treated by PCPs for pain managemnt. Pt was notified and agrees to d/c with Motrin and f/u with PCP. Critical care attestation.: If time is entered above; I have spent that time in minutes in the direct care of this critically ill patient, excluding procedure time. ED Disposition Clinical Impression: Chronic back pain Qualifiers: Back pain location: low back pain Back pain laterality: unspecified Sciatica presence: unspecified whether sciatica present Qualified Code(s): M54.5 - Low back pain; G89.29 - Other chronic pain Disposition: TO HOME OR SELFCARE Is pt being admited?: No Does the pt Need Aspirin: No Condition: Stable Instructions: Chronic Back Pain (ED), Ibuprofen (By mouth) Prescriptions: Ibuprofen [Motrin 600 MG tab] 600 mg PO Q8H PRN #30 tablet PRN Reason: Pain Referrals: PRIMARY CARE, [Primary Care Provider] - 3-5 Days DONNA VARELA MD [Staff Physician] - 3-5 Days [facility] [Outside] - 3-5 Days [facility] [Outside] - 3-5 Days
== END 2017-04-22 22:27 | disposition home or self-care (01) ==
LOC: ED 14:24
DX: G89.29 Other chronic pain (principal); M54.9 Dorsalgia, unspecified; K21.9 Gastro-esophageal reflux disease without esophagitis; Z86.73 Personal history of transient ischemic attack (TIA), and cerebral infarction without residual deficits
CPT/HCPCS: 99282